=== PATIENT | male | born 1955 | race Caucasian/White ===

== ENCOUNTER 2016-07-16 09:36 | Inpatient (IN) ==
[2016-07-16] MEDS ORDERED: SODIUM CHLORIDE 0.9% 1,000 ML IV STA ×2 (09:40→11:12)
[2016-07-16] MEDS ORDERED: PIPERACILLIN/TAZOBACTAM 3,375 MG in SODIUM CHLORIDE 0.9% 100 ML IV STA (09:40)
[2016-07-16] MEDS ORDERED: methylPREDNISolone SOD SUC 125 MG/2 ML VIAL IV STA (09:40)
[2016-07-16] MEDS ORDERED: methylPREDNISolone SOD SUC 125 MG/2 ML VIAL ONE (09:53)
[2016-07-16] MEDS ORDERED: ALBUTEROL 2.5 MG/3 ML NEB RESP TX SCH (10:00)
[2016-07-16] MEDS ORDERED: ACETAMINOPHEN 325 MG SUPP RECTAL ONE (10:01)
[2016-07-16] MEDS ORDERED: ACETAMINOPHEN 325 MG SUPP RECTAL STA (10:05)
[2016-07-16 10:07] LABS: Allen Test Positive
[2016-07-16 10:10] LABS: ABG Base Excess 4.1 MMOL/L (-2.5-2.5); ABG HCO3 29.2 MMOL/L (20-26); ABG Oxygen Saturation 98.4 % (95-100); ABG PCO2 46.4 MM HG (35-48); ABG PH 7.417 (7.35-7.45); ABG PO2 134.8 MM HG (80-95); ABG TCO2 30.6 MMOL/L (23-27)
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
[2016-07-16] MEDS ORDERED: PIPERACILLIN/TAZOBACTAM 3,375 MG VIAL IV ONE (10:28)
--- NOTE | 2016-07-16 10:51 | EKG Report ---
Stationary ECG Study [facility] ER Test Date: 07/16/2016 10:13:25 AM Pat Name: CLAUDIA HINOJOSA Department: Room: Gender: M Hoistman: SUERO : 1955 Requested by: Jay Luna Order Number: [id number] Reading MD: BRAYDEN KAUR Intervals [place] Rate: 136 P: 64 WI: 151 QRS: 23 QRSD: 72 T: 89 QT: 283 QTc: 363 Interpretive Statements SINUS TACHYCARDIA NONSPECIFIC T-WAVE ABNORMALITY ABNORMAL RHYTHM ECG Electronically Signed On 07-18-16 09:38:34 MANAGER UROLOGY by BRAYDEN KAUR [email or web address]
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
[2016-07-16 11:40] LABS: Basophils % 0.1 % (0.0-0.8); Eosinophils % 0.5 % (0.00-10.9); Hematocrit 30.7 VOL% (42.0-52.0); Hemoglobin 9.8 GM/DL (14.0-18.0); Immature Granulocytes % 0.5 %; Immature Granulocytes Absolute 0.04 #; Lymphocytes # 1.8 10*3/uL (1.4-4.0); Mean Corpuscular HGB Conc 31.9 GM/DL (32-36); Mean Corpuscular Hemoglobin 25 PG (27-34); Mean Corpuscular Volume 78.9 FL (87-102); Monocytes # 1.1 10*3/uL (0.11-0.8); Monocytes % 12.8 % (1.7-12.7); Neutrophils # 5.7 10*3/uL (1.4-7.4); Neutrophils % 65.1 % (38.7-73.9); Platelet Count 239 10*3/uL (130-400); Red Blood Count 3.89 10*6/uL (3.8-5.5); Red Cell Distribution Width 14.6 % (9.3-17.3); White Blood Count 8.7 10*3/uL (4.5-13.71)
[2016-07-16] MEDS ORDERED: ONDANSETRON 4 MG/2 ML VIAL IV PRN (11:41)
[2016-07-16] MEDS ORDERED: MAGNESIUM HYDROXIDE SUSP 30 ML UDCUP PEG PRN (11:43)
[2016-07-16] MEDS ORDERED: POLYETHYLENE GLYCOL POWDER 17 GM PACK PEG PRN (11:43)
[2016-07-16] MEDS ORDERED: traMADol 50 MG TABLET PEG PRN (11:43)
[2016-07-16] MEDS ORDERED: GLUCAGON 1 MG VIAL IM PRN (11:50)
[2016-07-16 11:53] LABS: Albumin 2.7 G/DL (3.4-5.0); Bilirubin,Total 0.5 MG/DL (0.2-1.0); Calcium 8.9 MG/DL (8.5-10.1); Total Protein 7.2 G/DL (6.4-8.3)
[2016-07-16 11:54] LABS: Osmolality,Calculated 302.6 MOS/KG (273-304); Potassium 4.5 MMOL/L (3.5-5.1); Troponin I Only 0.017 NG/ML (0.00-0.045)
[2016-07-16 12:00] LABS: Band Neutrophils 10 % (0-10); Hypochromasia 1+; Lymphocytes 14 % (20-55); Platelet Estimate Adequate; Segmented Neutrophils 64 % (50-85); Total Cells Counted 100
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
[2016-07-16] MEDS: PIPERACILLIN/TAZOBACTAM 3,375 MG in SODIUM CHLORIDE 0.9% 100 ML IV SCH ×2 (13:12→20:16)
[2016-07-16] MEDS: ENOXAPARIN 40 MG/0.4 ML SYRINGE SUBCUT SCH (13:12)
[2016-07-16] MEDS: DESITIN 4OZ/NYSTATIN 15 GRAM MIXTURE PASTE TOP SCH ×2 (14:22→20:29)
[2016-07-16] MEDS: ALBUTEROL/IPRATROPIUM 3 ML NEB RESP TX SCH ×3 (14:52→23:46)
--- NOTE | 2016-07-16 15:02 | Event Note ---
GI consult for Dr Chilel for leaking/malfunctioning PEG as reported by EMS on admission. Nurse present at bedside and PEG tube has minimal residual and flushes well without any leakage at the PEG site or at the distal tip. Will hold off on GI consult at present time unless a reported problem develops with feedings/med administration. Nicolasa Rose RN, at bedside and discussed case. She states she will call us back if any evidence of a leak/dysfunction occurs.
[2016-07-16] MEDS: INSULIN NPH 100 UNIT/ML SUBCUT SCH (16:28)
[2016-07-16] MEDS: SODIUM CHLORIDE 0.9% 1,000 ML IV SCH (16:28)
[2016-07-16] MEDS: INSULIN REGULAR 100 UNIT/ML SUBCUT SCH ×2 (16:29→20:16)
[2016-07-16] MEDS: DOCUSATE SODIUM 100 MG/10 ML UDCUP PEG SCH (20:14)
[2016-07-16] MEDS: RANITIDINE 150 MG/10 ML 30 ML BOTTLE PEG SCH (20:14)
[2016-07-16] MEDS: BISOPROLOL 5 MG TABLET PEG SCH (20:15)
[2016-07-17] MEDS: SODIUM CHLORIDE 0.9% 1,000 ML IV SCH (01:57)
[2016-07-17] MEDS: ALBUTEROL/IPRATROPIUM 3 ML NEB RESP TX SCH ×6 (03:48→23:48)
[2016-07-17] MEDS: PIPERACILLIN/TAZOBACTAM 3,375 MG in SODIUM CHLORIDE 0.9% 100 ML IV SCH ×3 (04:03→21:15)
[2016-07-17 06:08] LABS: Basophils % 0.1 % (0.0-0.8); Hematocrit 28.2 VOL% (42.0-52.0); Immature Granulocytes % 0.7 %; Immature Granulocytes Absolute 0.08 #; Lymphocytes # 1.1 10*3/uL (1.4-4.0); Lymphocytes % 8.9 % (21.2-54.2); Mean Corpuscular HGB Conc 31.9 GM/DL (32-36); Mean Corpuscular Hemoglobin 26 PG (27-34); Mean Corpuscular Volume 80.6 FL (87-102); Mean Platelet Volume 11.9 FL (9.6-12.0); Monocytes # 1.4 10*3/uL (0.11-0.8); Monocytes % 11.7 % (1.7-12.7); Neutrophils # 9.6 10*3/uL (1.4-7.4); Neutrophils % 78.6 % (38.7-73.9); Platelet Count 254 10*3/uL (130-400); Red Cell Distribution Width 14.7 % (9.3-17.3); White Blood Count 12.2 10*3/uL (4.5-13.71)
[2016-07-17 06:33] LABS: Hypochromasia 1+; Platelet Estimate Adequate
[2016-07-17 06:38] LABS: Calcium 8.8 MG/DL (8.5-10.1); Osmolality,Calculated 319.6 MOS/KG (273-304); Potassium 4.8 MMOL/L (3.5-5.1)
[2016-07-17 06:43] LABS: Phosphorous 2.6 MG/DL (2.5-4.9); Prealbumin 6.1 MG/DL (20-40)
--- NOTE | 2016-07-17 07:26 | Hospitalist Progress Note ---
Assessment and Plan (1) Neurologic abnormality Status: Chronic Assessment and plan: He appears to have had initial ischemic brain injury with subsequent ventricular hemorrhage. He has profound neurologic defect with speech, swallowing, and motor impairments requiring total care Current Visit: Yes (2) Aspiration into airway Status: Acute Assessment and plan: Neurogenic with multiple recurrent episodes, appears to have acute chemical bronchitis/alveolitis with this event with suggestion of progressive lung scarring Current Visit: Yes Qualifiers: Encounter type: subsequent encounter Qualified Code(s): T17.908D - Unspecified foreign body in respiratory tract, part unspecified causing other injury, subsequent encounter (3) Diabetes mellitus Status: Chronic Current Visit: No Qualifiers: Diabetes mellitus type: type 2 Diabetes mellitus complication status: with skin complications Diabetes mellitus intermediate frame tender insulin use: with mcc use Hospitalist: Subjective Interval history: 61 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 He has had chronic episodes of aspiration with gradually deteriorating chest radiography. He was reported at custodial to have some problems with his PEG tube and fall in SaO2. Evaluation of PEG appears to show adequate function and KUB is unremarkable. Clinical appearance most consistent with recurrent aspiration of variable volume with aspiration syndrome. Maximum temperature over night of 100.3 with supplemented SaO2 of 100%. He is stable this AM neurologically. Exam - Constitutional Vitals: Period Temp Pulse Resp BP Sys/Birch Pulse Ox Last 24 Hr 98.6 F-99.8 F 109-134 16-34 106-140/62-79 91-100 General appearance: under weight - Respiratory Respiratory exam: Present: clear to auscultation bilaterally. Absent: rales, rhonchi, wheezes - Cardiovascular Cardiovascular exam: Present: regular rate and rhythm - GI/Abdominal GI/Abdominal exam: Present: normal bowel sounds. Absent: distended, tenderness - Extremities Exam Extremities exam: Absent: edema - Neurological Exam Neurological exam: Present: alert Results - Labs CBC & BMP: 07/17/16 05:51 07/17/16 05:51
[2016-07-17] MEDS ORDERED: PROTEIN HYDROLYS PEG SCH (09:00)
[2016-07-17] MEDS ORDERED: AMINO ACIDS PEG SCH (09:00)
[2016-07-17] MEDS: ATORVASTATIN 20 MG TABLET PEG SCH (09:23)
[2016-07-17] MEDS: BISOPROLOL 5 MG TABLET PEG SCH ×2 (09:23→21:15)
[2016-07-17] MEDS: INSULIN NPH 100 UNIT/ML SUBCUT SCH ×2 (09:23→17:06)
[2016-07-17] MEDS: INSULIN REGULAR 100 UNIT/ML SUBCUT SCH ×4 (09:23→21:14)
[2016-07-17] MEDS: RANITIDINE 150 MG/10 ML 30 ML BOTTLE PEG SCH ×2 (09:24→21:15)
[2016-07-17] MEDS: SERTRALINE 25 MG TABLET PEG SCH (09:24)
[2016-07-17] MEDS: DESITIN 4OZ/NYSTATIN 15 GRAM MIXTURE PASTE TOP SCH ×2 (09:24→21:17)
[2016-07-17] MEDS: DOCUSATE SODIUM 100 MG/10 ML UDCUP PEG SCH ×2 (09:24→21:15)
[2016-07-17] MEDS: SODIUM CHLORIDE 0.45% 1,000 ML IV SCH (09:25)
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
[2016-07-17] MEDS: ENOXAPARIN 40 MG/0.4 ML SYRINGE SUBCUT SCH (11:38)
[2016-07-18] MEDS: ALBUTEROL/IPRATROPIUM 3 ML NEB RESP TX SCH ×5 (03:28→20:33)
[2016-07-18] MEDS: PIPERACILLIN/TAZOBACTAM 3,375 MG in SODIUM CHLORIDE 0.9% 100 ML IV SCH ×3 (03:28→21:30)
[2016-07-18] MEDS: SODIUM CHLORIDE 0.45% 1,000 ML IV SCH ×5 (03:47→21:28)
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
[2016-07-18] MEDS: SERTRALINE 25 MG TABLET PEG SCH (09:23)
[2016-07-18] MEDS: BISOPROLOL 5 MG TABLET PEG SCH ×2 (09:23→21:30)
[2016-07-18] MEDS: DOCUSATE SODIUM 100 MG/10 ML UDCUP PEG SCH ×2 (09:23→21:29)
[2016-07-18] MEDS: ATORVASTATIN 20 MG TABLET PEG SCH (09:23)
[2016-07-18] MEDS: RANITIDINE 150 MG/10 ML 30 ML BOTTLE PEG SCH ×2 (09:24→21:30)
[2016-07-18] MEDS: INSULIN REGULAR 100 UNIT/ML SUBCUT SCH ×4 (09:25→21:30)
[2016-07-18] MEDS: DESITIN 4OZ/NYSTATIN 15 GRAM MIXTURE PASTE TOP SCH ×2 (09:25→21:30)
[2016-07-18] MEDS: INSULIN NPH 100 UNIT/ML SUBCUT SCH ×2 (09:26→18:34)
[2016-07-18] MEDS: ENOXAPARIN 40 MG/0.4 ML SYRINGE SUBCUT SCH (12:31)
--- NOTE | 2016-07-18 12:49 | General Surgery Progress Note ---
Assessment and Plan (1) Peripheral vascular disease of lower extremity with ulceration Status: Acute Assessment and plan: 07/18/16 Stable left lower extremity diabetic foot wounds with peripheral vascular disease. I see no progression, nothing to suggest infection at this time. We'll continue to watch this while he's here, but he could easily transition to his current wound protocol whenever he's ready for discharge back to his SNF situation. WE'll add some topical antibiotic ointment and a band aid to the left 2nd toe until the avulsion wound heals. 07/17/16 Lower extremity peripheral vascular disease with diabetic foot ulcer and open tendon on the left-I see no gross clinical signs of infection or any progressive ischemic change. We'll just begin local care and offload these areas , watch for signs of progression or infection, and continue tube feedings. The adjacent skin should autolytically debride with Hydrogel/adaptic, avoiding an OR visit in this high risk patient, and the open tendon will need to be kept moist in order to salvage it, but he's not very mobile at this point so I don't feel we should be very aggressive in trying to close the area as long as he is having no problems with infection or progressive ischemia. Current Visit: Yes (2) Status post amputation of toe of left foot Status: Acute Current Visit: No (3) Diabetic foot ulcer associated with type 2 diabetes mellitus Status: Chronic Current Visit: No Qualifiers: Laterality: bilateral Qualified Code(s): E11.621 - Type 2 diabetes mellitus with foot ulcer Subjective Patient reports: Present: other (Affect and responsiveness unchanged; denies pain.) Exam - Constitutional Vitals: Period Temp Pulse Resp BP Sys/Birch Pulse Ox Last 24 Hr 98.5 F-100.5 F 83-110 16-96 142-174/68-98 93-99 - Respiratory Respiratory exam: Present: other (Breathing much more comfortably on nasal prong 02. No wheezes or rales.) - Extremities Exam Extremities exam: Present: other (Left dorsal foot wound is cleaner touch up worker, with moist eschars over the medial foot. There is no purulence, no erythema or induration. I see no progressive ischemic changes. The lateral foot wound is softer and very small; it appears to be a superficial healing abrasion. Unfortunately he has sustained what looks to be a traumatic avulsion of the left 2nd toenail; it is not bleeding but is completely avulsed, hanging at the nail bed by a thin tissue strand. i elected to cut this using a sterile suture removal kit. There was no bleeding or drainage seen. ) Results - Labs CBC & BMP: 07/17/16 05:51 07/17/16 05:51 Specialty Discharge - Follow Up or Referrals Follow up with: Amado Barrett MD [Physician] - (6 weeks)
--- NOTE | 2016-07-18 13:33 | Physician Query Form ---
CLICK EDIT DOCUMENT TO SELECT QUERY ANSWER --> OK --> SIGN Rosey Martines RN Clinical General Farm Manager W) [phone] (f) [phone] [email or web address] PROVIDERS: Make your selection(s) from the choices in EACH section by typing an "x" and enter comments in the comment section. Please use your independent medical judgment in providing your response. This request does not imply that any particular answer is desired or expected. CLINICAL INDICATORS: (Providers should not edit this section) Based on documentation of "functional quadriplegia" on correction records, nurse notes state "muscle weakness and total care". Please clarify if you agree with the documentation of functional quadriplegia. Which, if any, of the following is an etiology of the above abnormalities and treatment rendered: ( ) Functional quadriplegia (complete immobility due to severe physical disability or frailty due to non-neurologic cause) ( x) Quadriplegia due to a neurologic cause, please specify: ( ) Paraplegia due to a neurologic cause, please specify: ( ) Hemiplegia/hemiparesis due to a neurologic cause, please specify: ( ) Complete Immobility (due to frailty or severe physical disability) ( ) Persistent vegetative state ( ) Critical illness myopathy (difficulty weaning patients from mechanical ventilation or prolonged recovery after illness) ( ) General weakness ( ) Other cause, please specify: ( ) Clinically unable to determine COMMENTS: Use of terms such as suspected, likely, or probable (associated with a specific diagnosis that is being evaluated, monitored, or treated as if it exists) are acceptable and can be restated in the discharge summary if not ruled out. repetitive stroke syndrome MTDD
[2016-07-19] MEDS: ALBUTEROL/IPRATROPIUM 3 ML NEB RESP TX SCH ×7 (00:22→23:49)
[2016-07-19 01:12] LABS: Allen Test Positive
[2016-07-19 01:13] LABS: ABG Base Excess 10.2 MMOL/L (-2.5-2.5); ABG HCO3 35.3 MMOL/L (20-26); ABG Oxygen Saturation 93.3 % (95-100); ABG PCO2 50.4 MM HG (35-48); ABG PH 7.463 (7.35-7.45); ABG TCO2 36.8 MMOL/L (23-27)
[2016-07-19] MEDS: SODIUM CHLORIDE 0.45% 1,000 ML IV SCH ×3 (01:23→22:01)
[2016-07-19] MEDS: PIPERACILLIN/TAZOBACTAM 3,375 MG in SODIUM CHLORIDE 0.9% 100 ML IV SCH ×3 (04:19→20:27)
[2016-07-19 04:23] LABS: Osmolality,Calculated 313.3 MOS/KG (273-304); Potassium 4.3 MMOL/L (3.5-5.1)
[2016-07-19 09:00] LABS: ABG Base Excess 8.2 MMOL/L (-2.5-2.5); ABG HCO3 31.8 MMOL/L (20-26); ABG Oxygen Saturation 90.7 % (95-100); ABG PO2 57.9 MM HG (80-95); ABG TCO2 30.4 MMOL/L (23-27)
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
[2016-07-19] MEDS: INSULIN NPH 100 UNIT/ML SUBCUT SCH ×2 (09:33→16:49)
[2016-07-19] MEDS: INSULIN REGULAR 100 UNIT/ML SUBCUT SCH ×4 (09:33→21:22)
[2016-07-19] MEDS: ATORVASTATIN 20 MG TABLET PEG SCH (10:06)
[2016-07-19] MEDS: RANITIDINE 150 MG/10 ML 30 ML BOTTLE PEG SCH ×2 (10:06→21:50)
[2016-07-19] MEDS: DOCUSATE SODIUM 100 MG/10 ML UDCUP PEG SCH ×2 (10:06→21:22)
[2016-07-19] MEDS: BISOPROLOL 5 MG TABLET PEG SCH ×2 (10:07→21:22)
[2016-07-19] MEDS: SERTRALINE 25 MG TABLET PEG SCH (10:07)
[2016-07-19] MEDS: methylPREDNISolone SOD SUC 40 MG/1 ML VIAL IV SCH ×2 (10:07→17:28)
[2016-07-19] MEDS: CLINDAMYCIN INJ 600 MG in PREMIX 1 EACH IV SCH ×2 (10:08→17:28)
[2016-07-19 11:36] LABS: Apearance,Urine CLEAR (Clear); Bilirubin,Urine Negative (Negative); Blood, Urine Small mg/dL (Negative); Glucose,Urine (UA) 50 mg/dL (Negative); Ketones,Urine Negative (Negative); Nitrite,Urine Negative (Negative); Protein,Urine 100 MG/DL; RBC,Urine 13 /HPF (0-4); Urine Color Yellow (Yellow); Urine Specific Gravity 1.014 (1.001-1.035); Urine Urobilinogen < 2.0 EU/DL (0.2-1.0); WBC,Urine 1 /HPF (0-6)
[2016-07-19] MEDS: DESITIN 4OZ/NYSTATIN 15 GRAM MIXTURE PASTE TOP SCH ×2 (12:31→21:50)
[2016-07-19] MEDS: ENOXAPARIN 40 MG/0.4 ML SYRINGE SUBCUT SCH (12:31)
--- NOTE | 2016-07-19 14:34 | Hospitalist Progress Note ---
Assessment and Plan (1) Failure to thrive Status: Chronic Assessment and plan: PEG tube in place. Patient has been a high aspiration risk. At this time hold PEG tube feeding. Current Visit: No (2) Diabetes mellitus Status: Chronic Current Visit: No Qualifiers: Diabetes mellitus type: type 2 Diabetes mellitus complication status: with skin complications Diabetes mellitus intermediate school teacher insulin use: with intermediate school teacher use (3) History of pneumonia Status: Acute Assessment and plan: Continue antibiotics with Zosyn. Current Visit: No (4) Dehydration Status: Resolved Assessment and plan: Elevated serum sodium level. Continue IV fluids. Current Visit: No (5) Hypernatremia Status: Acute Current Visit: No (6) Pneumonia Status: Resolved Current Visit: No Qualifiers: Laterality: bilateral (7) History of stroke Status: Chronic Current Visit: No Hospitalist: Subjective Interval history: This patient became more lethargic and affect earlier this morning. He is been transferred to the ICU setting and is now on BiPAP ventilation. Vitals are slightly better. Chest x-ray shows no change from previous x-rays although infiltrate on the left are noted. There is concern of patient's high aspiration risk given his history of CVA and PEG tube feedings with these infiltrates noted. Time we are awaiting further input from family as relates to Mr. Baig's CODE STATUS and further care. Exam - Constitutional Vitals: Period Temp Pulse Resp BP Sys/Birch Pulse Ox Last 24 Hr 97.8 F-100.4 F 101-119 16-36 91-162/64-97 90-98 General appearance: mild distress, under weight - Head Head exam: Present: normal inspection - Neck Neck exam: Present: normal inspection - Respiratory Respiratory exam: Present: clear to auscultation bilaterally - Cardiovascular Cardiovascular exam: Present: regular rate and rhythm - GI/Abdominal GI/Abdominal exam: Present: normal bowel sounds, other (PEG tube in place) - Back Exam Back exam: Present: other (no abnormalities on back exam.) Results - Labs CBC & BMP: 07/17/16 05:51 07/19/16 03:11 Specialty Discharge - Follow Up or Referrals Follow up with: Amado Barrett MD [Physician] - (6 weeks)
[2016-07-20] MEDS: CLINDAMYCIN INJ 600 MG in PREMIX 1 EACH IV SCH ×3 (02:22→17:32)
[2016-07-20] MEDS: methylPREDNISolone SOD SUC 40 MG/1 ML VIAL IV SCH ×3 (02:23→17:32)
[2016-07-20] MEDS: PIPERACILLIN/TAZOBACTAM 3,375 MG in SODIUM CHLORIDE 0.9% 100 ML IV SCH ×3 (03:28→20:29)
[2016-07-20] MEDS: ALBUTEROL/IPRATROPIUM 3 ML NEB RESP TX SCH ×6 (03:30→23:42)
[2016-07-20 03:55] LABS: ABG Base Excess 7.9 MMOL/L (-2.5-2.5); ABG HCO3 31.7 MMOL/L (20-26); ABG Oxygen Saturation 99.4 % (95-100); ABG PCO2 55.1 MM HG (35-48); ABG PH 7.399 (7.35-7.45); ABG TCO2 31.7 MMOL/L (23-27); Allen Test Positive; Pt O2 Delivery Device BIPAP
[2016-07-20 05:18] LABS: Basophils % 0.1 % (0.0-0.8); Eosinophils % 0.1 % (0.00-10.9); Hematocrit 28.9 VOL% (42.0-52.0); Hemoglobin 8.8 GM/DL (14.0-18.0); Immature Granulocytes % 7.6 %; Immature Granulocytes Absolute 1.03 #; Lymphocytes % 14.9 % (21.2-54.2); Mean Corpuscular HGB Conc 30.4 GM/DL (32-36); Mean Corpuscular Hemoglobin 25 PG (27-34); Mean Corpuscular Volume 81.6 FL (87-102); Mean Platelet Volume 11.3 FL (9.6-12.0); Monocytes # 1.4 10*3/uL (0.11-0.8); Monocytes % 10.6 % (1.7-12.7); NRBC # 0.05 10*3/uL; Neutrophils % 66.7 % (38.7-73.9); Platelet Count 335 10*3/uL (130-400); Red Blood Count 3.54 10*6/uL (3.8-5.5); Red Cell Distribution Width 15.3 % (9.3-17.3); White Blood Count 13.6 10*3/uL (4.5-13.71)
[2016-07-20 05:59] LABS: Potassium 4.6 MMOL/L (3.5-5.1)
[2016-07-20 06:02] LABS: Band Neutrophils 3 % (0-10); Lymphocytes 12 % (20-55); Metamyelocytes 4 %; Myelocytes 1 %; Segmented Neutrophils 72 % (50-85); Total Cells Counted 100
[2016-07-20 06:03] LABS: Hypochromasia 1+; Microcytosis 1+; Platelet Estimate Normal
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
--- NOTE | 2016-07-20 07:21 | XRay Report ---
XR chest 1V portable Indication: Shortness of breath. Chest one view: Since yesterday, heart size remains normal with continued mild thoracic aortic tortuosity. Coarsened interstitial markings of the lungs with more focal area of coarsening in the right middle lobe, elevated right hemidiaphragm and shrapnel right chest wall are stable as well. No new infiltrates are seen. Minimal improved aeration of the left lung base noted. Impression: Minimally improved aeration left lung base. Otherwise no change. PROCEDURE INTERPRETED AT [facility] DEPARTMENT OF RADIOLOGY Final Report Signed by: Diallo Amador M.D.
[2016-07-20] MEDS: INSULIN NPH 100 UNIT/ML SUBCUT SCH ×2 (07:33→16:23)
[2016-07-20] MEDS: INSULIN REGULAR 100 UNIT/ML SUBCUT SCH ×4 (07:41→20:30)
[2016-07-20] MEDS: SODIUM CHLORIDE 0.45% 1,000 ML IV SCH ×2 (08:01→16:26)
[2016-07-20] MEDS: BISOPROLOL 5 MG TABLET PEG SCH ×2 (08:59→20:29)
[2016-07-20] MEDS: SERTRALINE 25 MG TABLET PEG SCH (08:59)
[2016-07-20] MEDS: DOCUSATE SODIUM 100 MG/10 ML UDCUP PEG SCH ×2 (08:59→20:30)
[2016-07-20] MEDS: ATORVASTATIN 20 MG TABLET PEG SCH (08:59)
[2016-07-20] MEDS: RANITIDINE 150 MG/10 ML 30 ML BOTTLE PEG SCH ×2 (09:00→20:30)
[2016-07-20] MEDS: DESITIN 4OZ/NYSTATIN 15 GRAM MIXTURE PASTE TOP SCH ×2 (09:08→20:39)
--- NOTE | 2016-07-20 11:10 | Hospitalist Progress Note ---
Assessment and Plan (1) Failure to thrive Status: Chronic Assessment and plan: PEG tube in place. Patient has been a high aspiration risk. At this time, trickle start of the feeds Current Visit: No (2) Diabetes mellitus Status: Chronic Current Visit: No Qualifiers: Diabetes mellitus type: type 2 Diabetes mellitus complication status: with skin complications Diabetes mellitus residential insulin use: with residential use (3) History of pneumonia Status: Acute Assessment and plan: Continue antibiotics with Zosyn. Current Visit: No (4) Dehydration Status: Resolved Assessment and plan: Elevated serum sodium level. Continue IV fluids. Current Visit: No (5) Hypernatremia Status: Acute Current Visit: No (6) Pneumonia Status: Resolved Current Visit: No Qualifiers: Laterality: bilateral (7) History of stroke Status: Chronic Current Visit: No Hospitalist: Subjective Interval history: Patient is more awake. He is now on facemask oxygen. Hemodynamics have been stable. There is been a slight bit of drainage from around the Fonseca catheter no wounds appreciated. Exam - Constitutional Vitals: Period Temp Pulse Resp BP Sys/Birch Pulse Ox Last 24 Hr 98.8 F-99.6 F 88-113 18-32 99-131/64-85 93-100 General appearance: under weight - Head Head exam: Present: normal inspection - Respiratory Respiratory exam: Present: clear to auscultation bilaterally - Cardiovascular Cardiovascular exam: Present: regular rate and rhythm - GI/Abdominal GI/Abdominal exam: Present: normal bowel sounds Results - Labs CBC & BMP: 07/20/16 04:33 07/20/16 04:33 Specialty Discharge - Follow Up or Referrals Follow up with: Amado Barrett MD [Physician] - (6 weeks)
[2016-07-20] MEDS: ENOXAPARIN 40 MG/0.4 ML SYRINGE SUBCUT SCH (12:15)
[2016-07-20] MEDS ORDERED: ACETAMINOPHEN 325 MG SUPP RECTAL PRN (17:21)
[2016-07-21] MEDS: CLINDAMYCIN INJ 600 MG in PREMIX 1 EACH IV SCH ×3 (01:06→17:15)
[2016-07-21] MEDS: methylPREDNISolone SOD SUC 40 MG/1 ML VIAL IV SCH ×3 (01:07→17:16)
[2016-07-21] MEDS: ALBUTEROL/IPRATROPIUM 3 ML NEB RESP TX SCH ×6 (03:04→23:31)
[2016-07-21 03:07] LABS: Allen Test Positive; Pt O2 Delivery Device Venturi Mask
[2016-07-21 03:08] LABS: ABG Base Excess 9.5 MMOL/L (-2.5-2.5); ABG HCO3 35.4 MMOL/L (20-26); ABG Oxygen Saturation 96.3 % (95-100); ABG PCO2 55.5 MM HG (35-48); ABG PH 7.423 (7.35-7.45); ABG PO2 89.5 MM HG (80-95); ABG TCO2 37.1 MMOL/L (23-27)
[2016-07-21 05:33] LABS: Calcium 9.5 MG/DL (8.5-10.1); Osmolality,Calculated 327.7 MOS/KG (273-304); Potassium 4.7 MMOL/L (3.5-5.1)
[2016-07-21] MEDS: SODIUM CHLORIDE 0.45% 1,000 ML IV SCH (05:51)
[2016-07-21] MEDS: PIPERACILLIN/TAZOBACTAM 3,375 MG in SODIUM CHLORIDE 0.9% 100 ML IV SCH ×3 (06:00→20:55)
[2016-07-21 06:52] LABS: Basophils % 0.1 % (0.0-0.8); Hematocrit 32.9 VOL% (42.0-52.0); Hemoglobin 9.8 GM/DL (14.0-18.0); Immature Granulocytes % 6.7 %; Immature Granulocytes Absolute 1.13 #; Lymphocytes # 1.6 10*3/uL (1.4-4.0); Lymphocytes % 9.7 % (21.2-54.2); Mean Corpuscular HGB Conc 29.8 GM/DL (32-36); Mean Corpuscular Hemoglobin 25 PG (27-34); Mean Corpuscular Volume 85.2 FL (87-102); Monocytes # 1.6 10*3/uL (0.11-0.8); Monocytes % 9.5 % (1.7-12.7); NRBC # 0.03 10*3/uL; Neutrophils # 12.4 10*3/uL (1.4-7.4); Platelet Count 370 10*3/uL (130-400); Red Blood Count 3.86 10*6/uL (3.8-5.5); Red Cell Distribution Width 15.3 % (9.3-17.3); White Blood Count 16.8 10*3/uL (4.5-13.71)
[2016-07-21 07:12] LABS: Band Neutrophils 5 % (0-10); Hypochromasia 1+; Lymphocytes 9 % (20-55); Metamyelocytes 1 %; Nucleated Red Blood Cells 1 (0-5); Segmented Neutrophils 79 % (50-85); Total Cells Counted 100
[2016-07-21 07:13] LABS: Microcytosis 1+; Platelet Estimate Normal
--- NOTE | 2016-07-21 07:19 | Pulmonology Progress Note ---
Pulmonary - PN: Subj Interval history: This 61-year-old black male has had a previous stroke. Apparently having problems with recurrent aspiration pneumonia. His oxygen levels have improved on the BiPAP facemask. We'll try him back on Ventimask during the day. 07/21/2016 patient is a little more responsive. Looking around. ABGs look good. PO2 is 89 on the Ventimask we'll reduce him to nasal biprong. Exam (Progress Note) - Constitutional Vitals: Period Temp Pulse Resp BP Sys/Birch Pulse Ox Last 24 Hr 96.9 F-102.6 F 76-99 17-26 122-148/66-85 93-100 Exam: Patient's noncommunicative. He is looking around and appears to be more alert. Vital signs normal. pupils react to light. Face symmetrical. Neck supple no bruits. Chest reveals some rhonchi primarily at the right base. Heart normal rate rhythm no murmurs. Abdomen soft no masses. Bowel sounds present. Extremities no clubbing cyanosis edema. Results - Labs CBC & BMP: 07/21/16 06:43 07/21/16 04:13 Lab Results: I have reviewed the past 24 hour labs - Diagnostic Findings Procedure: Chest x-ray: image reviewed by me (minimal right basilar infiltrate seems improved.) Assessment and Plan (1) Diabetes mellitus Status: Chronic Assessment and plan: Glucoses appear fairly well controlled. I'm adding steroids we need to watch these closely. 07/20/2016 glucoses in the low 200s. This is fair control. 07/21/2016 glucoses fairly well controlled. Current Visit: No Qualifiers: Diabetes mellitus type: type 2 Diabetes mellitus complication status: with skin complications Diabetes mellitus complication detail: with foot ulcer Diabetes mellitus exterminator insulin use: with fdc use Qualified Code(s) : E11.621 - Type 2 diabetes mellitus with foot ulcer (2) History of stroke Status: Chronic Assessment and plan: Previous intraventricular bleed with aphasia, and bedridden state. Would be concerned about control of airway. We'll keep head elevated. 07/20/2016 patient unable to control his airway. Patient fed per PEG tube. Keep head elevated. 07/21/2016 he is a little bit more alert now. Does have hypernatremia. We'll change IV fluids. Current Visit: No (3) Aspiration pneumonia Status: Acute Assessment and plan: Presently on Zosyn. I will add Cleocin and Solu-Medrol. 07/20/2016 continuing broad-spectrum antibiotics and steroids. Looks a little better today. 07/21/2016 continuing empiric antibiotics and steroids. Current Visit: Yes (4) Neurologic abnormality Status: Chronic Assessment and plan: Has devastating neurologic effects of previous bleed. My concern at present is whether he can control his airway. He is being fed through a PEG tube. I think it would keep his head elevated would be all right with the BiPAP. If he has any vomiting we will have to intubate. If oxygen saturation drops further we will have to intubate. Await word from family on what their wishes are. 07/20/2016 patient not interactive. Probably cannot defend his airway. 07/21/2016 patient a little bit more alert. Current Visit: Yes (5) Hypernatremia Status: Resolved Assessment and plan: Sodium is 159. He is getting normal saline. I will change him to one quarter normal saline due to hypernatremia and diabetes. Current Visit: No Specialty Discharge - Follow Up or Referrals Follow up with: Amado Barrett MD [Physician] - (6 weeks)
--- NOTE | 2016-07-21 07:56 | XRay Report ---
XR chest 1V portable Indication: Shortness of breath. Chest one view: Comparison yesterday shows shrapnel over the right chest wall is unchanged. Interstitial prominence of the lungs, patchy density right lung base, pulmonary hypoinflation and normal heart size are stable as well. No new infiltrates are seen. Impression: No change. PROCEDURE INTERPRETED AT [facility], [place] DEPARTMENT OF RADIOLOGY Final Report Signed by: Diallo Amador M.D.
[2016-07-21] MEDS: ATORVASTATIN 20 MG TABLET PEG SCH (08:52)
[2016-07-21] MEDS: SERTRALINE 25 MG TABLET PEG SCH (08:52)
[2016-07-21] MEDS: BISOPROLOL 5 MG TABLET PEG SCH ×2 (08:52→20:59)
[2016-07-21] MEDS: DOCUSATE SODIUM 100 MG/10 ML UDCUP PEG SCH ×2 (08:52→20:59)
[2016-07-21] MEDS: INSULIN REGULAR 100 UNIT/ML SUBCUT SCH ×4 (08:53→21:16)
[2016-07-21] MEDS: INSULIN NPH 100 UNIT/ML SUBCUT SCH ×2 (08:53→17:08)
[2016-07-21] MEDS: RANITIDINE 150 MG/10 ML 30 ML BOTTLE PEG SCH ×2 (08:54→20:59)
[2016-07-21] MEDS: DESITIN 4OZ/NYSTATIN 15 GRAM MIXTURE PASTE TOP SCH ×2 (08:54→21:00)
--- NOTE | 2016-07-21 09:04 | Hospitalist Progress Note ---
Assessment and Plan (1) Failure to thrive Status: Chronic Assessment and plan: PEG tube in place. Patient has been a high aspiration risk. At this time, trickle start of the feeds Feel this patient needs to be in a long-term acute care facility. Current Visit: No (2) Diabetes mellitus Status: Chronic Current Visit: No Qualifiers: Diabetes mellitus type: type 2 Diabetes mellitus complication status: with skin complications Diabetes mellitus half-way insulin use: with half-way use (3) History of pneumonia Status: Acute Assessment and plan: Continue antibiotics with Zosyn. Current Visit: No (4) Dehydration Status: Resolved Assessment and plan: Elevated serum sodium level. Continue IV fluids. Have also started freewater flushes. 100 cc every 4 hours. Current Visit: No (5) Hypernatremia Status: Acute Current Visit: No (6) Pneumonia Status: Resolved Current Visit: No Qualifiers: Laterality: bilateral (7) History of stroke Status: Chronic Current Visit: No Hospitalist: Subjective Interval history: Mr. Baig is sitting up in bed. He is now on nasal cannula. However did have an episode of desaturation earlier this morning. The patient has a high risk of aspiration and is currently being treated for aspiration pneumonia. He is much more open awake and interactive. He is getting increased free water flushes as well as free water through his IV. Continue with trickle feeds. 1. Social work for LTAC 2. No family in contact over the weekend. However, code status needs to be further addressed. 3. CBC, BMP in A M Exam - Constitutional Vitals: Period Temp Pulse Resp BP Sys/Birch Pulse Ox Last 24 Hr 96.9 F-102.6 F 76-99 17-26 122-148/66-85 94-100 General appearance: under weight - Head Head exam: Present: abrasion (noted on cheeks due to facemask, now getting nasal cannula) - Respiratory Respiratory exam: Present: clear to auscultation bilaterally - Cardiovascular Cardiovascular exam: Present: regular rate and rhythm Results - Labs CBC & BMP: 07/21/16 06:43 07/21/16 04:13 Specialty Discharge - Follow Up or Referrals Follow up with: Amado Barrett MD [Physician] - (6 weeks)
[2016-07-21] MEDS: SODIUM CHLORIDE 23.4% CONC INJ 38.5 MEQ in STERILE WATER INJ 1,000 ML IV SCH (11:48)
[2016-07-21] MEDS: ENOXAPARIN 40 MG/0.4 ML SYRINGE SUBCUT SCH (12:13)
[2016-07-21] MEDS: amLODIPine 5 MG TABLET PO SCH (20:59)
[2016-07-22] MEDS: methylPREDNISolone SOD SUC 40 MG/1 ML VIAL IV SCH ×2 (02:23→09:40)
[2016-07-22] MEDS: CLINDAMYCIN INJ 600 MG in PREMIX 1 EACH IV SCH ×3 (02:23→17:29)
[2016-07-22] MEDS: ALBUTEROL/IPRATROPIUM 3 ML NEB RESP TX SCH ×6 (03:10→23:50)
[2016-07-22] MEDS: PIPERACILLIN/TAZOBACTAM 3,375 MG in SODIUM CHLORIDE 0.9% 100 ML IV SCH ×3 (04:21→20:25)
[2016-07-22 06:35] LABS: Basophils % 0.1 % (0.0-0.8); Hematocrit 35.7 VOL% (42.0-52.0); Hemoglobin 10.7 GM/DL (14.0-18.0); Immature Granulocytes % 3.2 %; Immature Granulocytes Absolute 0.52 #; Lymphocytes # 1.4 10*3/uL (1.4-4.0); Lymphocytes % 8.7 % (21.2-54.2); Mean Corpuscular Hemoglobin 25 PG (27-34); Mean Corpuscular Volume 84.4 FL (87-102); Mean Platelet Volume 11.1 FL (9.6-12.0); Monocytes # 1.1 10*3/uL (0.11-0.8); Monocytes % 7.1 % (1.7-12.7); NRBC # 0.02 10*3/uL; Neutrophils % 80.9 % (38.7-73.9); Platelet Count 396 10*3/uL (130-400); Red Blood Count 4.23 10*6/uL (3.8-5.5); Red Cell Distribution Width 15.5 % (9.3-17.3)
--- NOTE | 2016-07-22 07:00 | Pulmonology Progress Note ---
Pulmonary - PN: Subj Interval history: This 61-year-old black male has had a previous stroke. Apparently having problems with recurrent aspiration pneumonia. His oxygen levels have improved on the BiPAP facemask. We'll try him back on Ventimask during the day. 07/21/2016 patient is a little more responsive. Looking around. ABGs look good. PO2 is 89 on the Ventimask we'll reduce him to nasal biprong. 07/22/2016 patient seems more alert and is calm. He is noncommunicative. X- ray yesterday was much better. O2 sats 99% on 2 L. Presently on IV antibiotics and steroids and we will start weaning those. Exam (Progress Note) - Constitutional Vitals: Period Temp Pulse Resp BP Sys/Birch Pulse Ox Last 24 Hr 97 F-99.3 F 32-105 14-85 122-166/71-93 85-100 Exam: Patient's noncommunicative. He is more alert. Vital signs normal. pupils react to light. Face symmetrical. Neck supple no bruits. Chest reveals clear lungs bilaterally. Heart normal rate rhythm no murmurs. Abdomen soft no masses. Bowel sounds present. Extremities no clubbing cyanosis edema. Results - Labs CBC & BMP: 07/22/16 06:27 07/21/16 04:13 Lab Results: I have reviewed the past 24 hour labs Assessment and Plan (1) Diabetes mellitus Status: Chronic Assessment and plan: Glucoses appear fairly well controlled. I'm adding steroids we need to watch these closely. 07/20/2016 glucoses in the low 200s. This is fair control. 07/21/2016 glucoses fairly well controlled. 07/22/2016 blood sugars well controlled. Current Visit: No Qualifiers: Diabetes mellitus type: type 2 Diabetes mellitus complication status: with skin complications Diabetes mellitus complication detail: with foot ulcer Diabetes mellitus exterminator insulin use: with usp use Qualified Code(s) : E11.621 - Type 2 diabetes mellitus with foot ulcer (2) History of stroke Status: Chronic Assessment and plan: Previous intraventricular bleed with aphasia, and bedridden state. Would be concerned about control of airway. We'll keep head elevated. 07/20/2016 patient unable to control his airway. Patient fed per PEG tube. Keep head elevated. 07/21/2016 he is a little bit more alert now. Does have hypernatremia. We'll change IV fluids. 07/22/2016 patient seems to respond to questions although he is nonverbal. Current Visit: No (3) Aspiration pneumonia Status: Acute Assessment and plan: Presently on Zosyn. I will add Cleocin and Solu-Medrol. 07/20/2016 continuing broad-spectrum antibiotics and steroids. Looks a little better today. 07/21/2016 continuing empiric antibiotics and steroids. 07/22/2016 he has responded to antibiotics and steroids. We'll change and give them per feeding tube. Current Visit: Yes (4) Neurologic abnormality Status: Chronic Assessment and plan: Has devastating neurologic effects of previous bleed. My concern at present is whether he can control his airway. He is being fed through a PEG tube. I think it would keep his head elevated would be all right with the BiPAP. If he has any vomiting we will have to intubate. If oxygen saturation drops further we will have to intubate. Await word from family on what their wishes are. 07/20/2016 patient not interactive. Probably cannot defend his airway. 07/21/2016 patient a little bit more alert. 07/22/16 today and has had a severe stroke in the past. He does nod somewhat to questions but does not talk. Current Visit: Yes (5) Hypernatremia Status: Resolved Assessment and plan: Sodium is 159. He is getting normal saline. I will change him to one quarter normal saline due to hypernatremia and diabetes. 07/22/2016 chemistries pending this morning. Current Visit: No Specialty Discharge - Follow Up or Referrals Follow up with: Amado aBrrett MD [Physician] - (6 weeks)
[2016-07-22 07:03] LABS: Hypochromasia 1+; Lymphocytes 6 % (20-55); Polychromasia Slight; Segmented Neutrophils 89 % (50-85); Target Cells Slight; Total Cells Counted 100
[2016-07-22 07:06] LABS: Calcium 9.6 MG/DL (8.5-10.1); Magnesium 2.3 MG/DL (1.8-2.4); Osmolality,Calculated 325.6 MOS/KG (273-304)
[2016-07-22 07:24] LABS: Magnesium 2.3 MG/DL (1.8-2.4); Phosphorous 3.5 MG/DL (2.5-4.9); Prealbumin 13.7 MG/DL (20-40)
--- NOTE | 2016-07-22 08:37 | General Surgery Progress Note ---
Assessment and Plan - Time spent with patient Time spent with patient: Less than 30 minutes (1) Diabetic foot ulcer associated with type 2 diabetes mellitus Status: Chronic Assessment and plan: 07/22/2016. Ulcer is stable at this time no eschar and the sloughing material is beginning to all to lyse at this time. We'll maintain present level of care. Current Visit: No Qualifiers: Laterality: left Qualified Code(s): E11.621 - Type 2 diabetes mellitus with foot ulcer; L97.529 - Non-pressure chronic ulcer of other part of left foot with unspecified severity Subjective Patient reports: Present: no new complaints, afebrile, other (not very responsive.) Exam - Constitutional Vitals: Period Temp Pulse Resp BP Sys/Birch Pulse Ox Last 24 Hr 97 F-98.9 F 32-101 14-85 119-166/71-93 92-100 General appearance: no acute distress - Neck Neck exam: Present: normal inspection - Respiratory Respiratory exam: Present: rales - Cardiovascular Cardiovascular exam: Present: RRR - GI/Abdominal GI/Abdominal exam: Present: hypoactive bowel sounds, soft - Extremities Exam Extremities exam: Present: other (ulcer of the left foot is clean and moist with slough slowly auto lysing at this time) - Neurological Exam Neurological exam: Present: altered - Skin Skin exam: Present: normal color, warm, dry Results - Labs CBC & BMP: 07/22/16 06:27 07/22/16 06:27 Lab Results: I have reviewed the past 24 hour labs Specialty Discharge - Follow Up or Referrals Follow up with: Amado Barrett MD [Physician] - (6 weeks)
[2016-07-22] MEDS: BACITRACIN OINT 0.9 GM PACK TOP SCH (09:38)
[2016-07-22] MEDS: INSULIN NPH 100 UNIT/ML SUBCUT SCH ×2 (09:38→17:28)
[2016-07-22] MEDS: ATORVASTATIN 20 MG TABLET PEG SCH (09:39)
[2016-07-22] MEDS: amLODIPine 5 MG TABLET PO SCH (09:39)
[2016-07-22] MEDS: DOCUSATE SODIUM 100 MG/10 ML UDCUP PEG SCH ×2 (09:39→20:52)
[2016-07-22] MEDS: SKIN HEALING OINT (AQUAPHOR) 50 GM TUBE TOP PRN (09:39)
[2016-07-22] MEDS: RANITIDINE 150 MG/10 ML 30 ML BOTTLE PEG SCH ×2 (09:40→21:50)
[2016-07-22] MEDS: BISOPROLOL 5 MG TABLET PEG SCH ×2 (09:40→20:52)
[2016-07-22] MEDS: DESITIN 4OZ/NYSTATIN 15 GRAM MIXTURE PASTE TOP SCH ×2 (09:40→20:52)
[2016-07-22] MEDS: SERTRALINE 25 MG TABLET PEG SCH (09:40)
--- NOTE | 2016-07-22 10:09 | Hospitalist Progress Note ---
Assessment and Plan (1) Weight loss Status: Acute Current Visit: No (2) Failure to thrive Status: Chronic Current Visit: No (3) Diabetes mellitus Status: Chronic Current Visit: No Qualifiers: Diabetes mellitus type: type 2 Diabetes mellitus complication status: with skin complications Diabetes mellitus laborer marine terminal insulin use: with mcfp use (4) Aspiration pneumonia Status: Acute Current Visit: Yes (5) Aspiration into airway Status: Acute Current Visit: Yes Qualifiers: Encounter type: subsequent encounter Qualified Code(s): T17.908D - Unspecified foreign body in respiratory tract, part unspecified causing other injury, subsequent encounter (6) Peripheral vascular disease of lower extremity with ulceration Status: Acute Assessment and plan: Plan will be to continue to watch it sugars. He has been on steroids are being transferred back. He seems to interact with questions although E's is nonverbal. His aspiration pneumonia appears that is getting better based on the chest x-ray will continue with antibiotics and steroids. 2 feedings are being advanced. Patient had a severe stroke in the past sometimes he seems like he denies to questions. He does seem like he is at his baseline. Sodium is 160 today. Current Visit: Yes Hospitalist: Subjective Interval history: There have been no acute changes. This Is a 61-year-old with a history of stroke failure to Thrive PEG tube placement and aspiration pneumonia. Exam - Constitutional Vitals: Period Temp Pulse Resp BP Sys/Birch Pulse Ox Last 24 Hr 97 F-98.9 F 75-101 14-85 119-166/71-93 94-100 General appearance: normal weight - Head Head exam: Present: normal inspection - Neck Neck exam: Present: normal inspection - Respiratory Respiratory exam: Present: clear to auscultation bilaterally - Cardiovascular Cardiovascular exam: Present: regular rate and rhythm - GI/Abdominal GI/Abdominal exam: Present: normal bowel sounds - Extremities Exam Extremities exam: Present: normal inspection - Back Exam Back exam: Present: normal inspection Results - Labs CBC & BMP: 07/22/16 06:27 07/22/16 06:27 Specialty Discharge - Follow Up or Referrals Follow up with: Amado Barrett MD [Physician] - (6 weeks)
[2016-07-22] MEDS ORDERED: methylPREDNISolone SOD SUC 40 MG/1 ML VIAL IV SCH (11:30)
[2016-07-22] MEDS: INSULIN REGULAR 100 UNIT/ML SUBCUT SCH ×4 (12:23→20:52)
[2016-07-22] MEDS: ENOXAPARIN 40 MG/0.4 ML SYRINGE SUBCUT SCH (12:24)
[2016-07-22] MEDS: SODIUM CHLORIDE 23.4% CONC INJ 38.5 MEQ in STERILE WATER INJ 1,000 ML IV SCH ×2 (17:03→17:04)
[2016-07-23] MEDS: SODIUM CHLORIDE 23.4% CONC INJ 38.5 MEQ in STERILE WATER INJ 1,000 ML IV SCH ×2 (01:14→04:44)
[2016-07-23 01:22] LABS: Basophils % 0.2 % (0.0-0.8); Eosinophils % 0.1 % (0.00-10.9); Hematocrit 36.8 VOL% (42.0-52.0); Hemoglobin 11.1 GM/DL (14.0-18.0); Immature Granulocytes % 2.6 %; Immature Granulocytes Absolute 0.47 #; Lymphocytes # 2.4 10*3/uL (1.4-4.0); Lymphocytes % 13.5 % (21.2-54.2); Mean Corpuscular HGB Conc 30.2 GM/DL (32-36); Mean Corpuscular Hemoglobin 25 PG (27-34); Monocytes # 1.4 10*3/uL (0.11-0.8); Monocytes % 7.9 % (1.7-12.7); NRBC # 0.04 10*3/uL; Neutrophils # 13.6 10*3/uL (1.4-7.4); Neutrophils % 75.7 % (38.7-73.9); Platelet Count 302 T/CUMM (130-400); Red Blood Count 4.38 MC/CUMM (3.8-5.5); Red Cell Distribution Width 15.4 % (9.3-17.3); White Blood Count 17.9 T/CUMM (4-12)
[2016-07-23 01:59] LABS: Calcium 9.5 MG/DL (8.5-10.1); Magnesium 2.2 MG/DL (1.8-2.4); Osmolality,Calculated 323.3 MOS/KG (273-304); Potassium 4.2 MMOL/L (3.5-5.1)
[2016-07-23] MEDS: CLINDAMYCIN INJ 600 MG in PREMIX 1 EACH IV SCH ×3 (02:08→16:34)
[2016-07-23] MEDS: DEXTROSE 50% 25 GM/50 ML VIAL IV PRN (02:18)
[2016-07-23] MEDS: ALBUTEROL/IPRATROPIUM 3 ML NEB RESP TX SCH ×6 (03:50→23:38)
[2016-07-23] MEDS: PIPERACILLIN/TAZOBACTAM 3,375 MG in SODIUM CHLORIDE 0.9% 100 ML IV SCH ×3 (04:43→21:44)
--- NOTE | 2016-07-23 07:14 | Pulmonology Progress Note ---
Pulmonary - PN: Subj Interval history: This 61-year-old black male has had a previous stroke. Apparently having problems with recurrent aspiration pneumonia. His oxygen levels have improved on the BiPAP facemask. We'll try him back on Ventimask during the day. 07/21/2016 patient is a little more responsive. Looking around. ABGs look good. PO2 is 89 on the Ventimask we'll reduce him to nasal biprong. 07/22/2016 patient seems more alert and is calm. He is noncommunicative. X- ray yesterday was much better. O2 sats 99% on 2 L. Presently on IV antibiotics and steroids and we will start weaning those. 07/23/2016 patient is not having any difficulty with his breathing. He has severe hypernatremia. Defer to nephrology. Exam (Progress Note) - Constitutional Vitals: Period Temp Pulse Resp BP Sys/Birch Pulse Ox Last 24 Hr 97.4 F-99.2 F 75-96 14-25 110-153/65-88 94-100 Exam: Patient's noncommunicative. He is poorly responsive. Vital signs normal. pupils react to light. Face symmetrical. Neck supple no bruits. Chest reveals clear lungs bilaterally. Heart normal rate rhythm no murmurs. Abdomen soft no masses. Bowel sounds present. Extremities no clubbing cyanosis edema. Results - Labs CBC & BMP: 07/23/16 00:46 07/23/16 00:46 Lab Results: I have reviewed the past 24 hour labs Assessment and Plan (1) Diabetes mellitus Status: Chronic Assessment and plan: Glucoses appear fairly well controlled. I'm adding steroids we need to watch these closely. 07/20/2016 glucoses in the low 200s. This is fair control. 07/21/2016 glucoses fairly well controlled. 07/22/2016 blood sugars well controlled. 07/23/2016 hypoglycemia this morning. Being addressed. Current Visit: No Qualifiers: Diabetes mellitus type: type 2 Diabetes mellitus complication status: with skin complications Diabetes mellitus complication detail: with foot ulcer Diabetes mellitus snf insulin use: with termite exterminator helper use Qualified Code(s) : E11.621 - Type 2 diabetes mellitus with foot ulcer (2) History of stroke Status: Chronic Assessment and plan: Previous intraventricular bleed with aphasia, and bedridden state. Would be concerned about control of airway. We'll keep head elevated. 07/20/2016 patient unable to control his airway. Patient fed per PEG tube. Keep head elevated. 07/21/2016 he is a little bit more alert now. Does have hypernatremia. We'll change IV fluids. 07/22/2016 patient seems to respond to questions although he is nonverbal. 07/23/2016 patient nonverbal. Current Visit: No (3) Aspiration pneumonia Status: Acute Assessment and plan: Presently on Zosyn. I will add Cleocin and Solu-Medrol. 07/20/2016 continuing broad-spectrum antibiotics and steroids. Looks a little better today. 07/21/2016 continuing empiric antibiotics and steroids. 07/22/2016 he has responded to antibiotics and steroids. We'll change and give them per feeding tube. 07/23/2016 this is much improved. Current Visit: Yes (4) Neurologic abnormality Status: Chronic Assessment and plan: Has devastating neurologic effects of previous bleed. My concern at present is whether he can control his airway. He is being fed through a PEG tube. I think it would keep his head elevated would be all right with the BiPAP. If he has any vomiting we will have to intubate. If oxygen saturation drops further we will have to intubate. Await word from family on what their wishes are. 07/20/2016 patient not interactive. Probably cannot defend his airway. 07/21/2016 patient a little bit more alert. 07/22/16 today and has had a severe stroke in the past. He does nod somewhat to questions but does not talk. 07/23/2016 previous stroke plus severe hypernatremia. Current Visit: Yes (5) Hypernatremia Status: Resolved Assessment and plan: Sodium is 159. He is getting normal saline. I will change him to one quarter normal saline due to hypernatremia and diabetes. 07/22/2016 chemistries pending this morning. 07/23/2016 sodium 162. We need to get this down less than 150. Defer to nephrology. Current Visit: No Specialty Discharge - Follow Up or Referrals Follow up with: Amado Barrett MD [Physician] - (6 weeks)
[2016-07-23] MEDS: DEXTROSE 5% 1,000 ML IV SCH ×2 (08:21→16:37)
[2016-07-23] MEDS: methylPREDNISolone SOD SUC 40 MG/1 ML VIAL IV SCH (08:23)
[2016-07-23] MEDS: BISOPROLOL 5 MG TABLET PEG SCH ×2 (08:24→21:46)
[2016-07-23] MEDS: ATORVASTATIN 20 MG TABLET PEG SCH (08:24)
[2016-07-23] MEDS: DOCUSATE SODIUM 100 MG/10 ML UDCUP PEG SCH ×2 (08:24→21:44)
[2016-07-23] MEDS: BACITRACIN OINT 0.9 GM PACK TOP SCH (08:24)
[2016-07-23] MEDS: amLODIPine 5 MG TABLET PO SCH (08:24)
[2016-07-23] MEDS: SERTRALINE 25 MG TABLET PEG SCH (08:24)
[2016-07-23] MEDS: INSULIN NPH 100 UNIT/ML SUBCUT SCH ×2 (08:24→16:33)
[2016-07-23] MEDS: INSULIN REGULAR 100 UNIT/ML SUBCUT SCH ×4 (08:25→21:45)
[2016-07-23] MEDS: RANITIDINE 150 MG/10 ML 30 ML BOTTLE PEG SCH ×2 (08:26→21:45)
[2016-07-23] MEDS: DESITIN 4OZ/NYSTATIN 15 GRAM MIXTURE PASTE TOP SCH ×2 (08:26→21:45)
--- NOTE | 2016-07-23 09:49 | Hospitalist Progress Note ---
Assessment and Plan (1) Weight loss Status: Acute Current Visit: No (2) Failure to thrive Status: Chronic Current Visit: No (3) Diabetes mellitus Status: Chronic Current Visit: No Qualifiers: Diabetes mellitus type: type 2 Diabetes mellitus complication status: with skin complications Diabetes mellitus terminal operations supervisor insulin use: with jail use (4) Aspiration pneumonia Status: Acute Current Visit: Yes (5) Aspiration into airway Status: Acute Current Visit: Yes Qualifiers: Encounter type: subsequent encounter Qualified Code(s): T17.908D - Unspecified foreign body in respiratory tract, part unspecified causing other injury, subsequent encounter (6) Peripheral vascular disease of lower extremity with ulceration Status: Acute Assessment and plan: Plan will be to continue to watch it sugars. He has been on steroids are being transferred back. He seems to interact with questions although E's is nonverbal. His aspiration pneumonia appears that is getting better based on the chest x-ray will continue with antibiotics and steroids. 2 feedings are being advanced. Patient had a severe stroke in the past sometimes he seems like he denies to questions. He does seem like he is at his baseline. Sodium is 160 today. 07/23/16 patient sodium is now up to 162. It seems to me that he has some dehydration still present. Dr. Baez's consult to nephrology which is appropriate. He has D5W at 100. Of feel comfortable transferring him upstairs as long as he isn't a room close to the nurses station Current Visit: Yes Hospitalist: Subjective Interval history: No acute events over the night. Patient still with elevated white count and elevated sodium Exam - Constitutional Vitals: Period Temp Pulse Resp BP Sys/Birch Pulse Ox Last 24 Hr 97.4 F-99.2 F 75-96 14-26 110-153/62-88 94-100 General appearance: normal weight neurologically impared from a stroke - Head Head exam: Present: normal inspection - Neck Neck exam: Present: normal inspection - Respiratory Respiratory exam: Present: clear to auscultation bilaterally - Cardiovascular Cardiovascular exam: Present: regular rate and rhythm - GI/Abdominal GI/Abdominal exam: Present: normal bowel sounds - Extremities Exam Extremities exam: Present: normal inspection - Back Exam Back exam: Present: normal inspection Results - Labs CBC & BMP: 07/23/16 00:46 07/23/16 00:46 Specialty Discharge - Follow Up or Referrals Follow up with: Amado Barrett MD [Physician] - (6 weeks)
[2016-07-23] MEDS: SKIN HEALING OINT (AQUAPHOR) 50 GM TUBE TOP PRN (11:00)
[2016-07-23] MEDS: ENOXAPARIN 40 MG/0.4 ML SYRINGE SUBCUT SCH (12:32)
--- NOTE | 2016-07-23 14:43 | Physician Query Form ---
CLICK EDIT DOCUMENT TO SELECT QUERY ANSWER --> OK --> SIGN Rosey Martines RN Clinical Hot Cell Technician W) [phone] (f) [phone] [email or web address]: Make your selection(s) from the choices in EACH section by typing an "x" and enter comments in the comment section. Please use your independent medical judgment in providing your response. This request does not imply that any particular answer is desired or expected. CLINICAL INDICATORS: (Providers should not edit this section) Based on documentation of " This morning he was found to be more dyspneic tachypnea and hypoxemic and was moved to the intensive care unit. At the present time he is on BiPAP and his O2 sats is in the low to mid 90s." If possible, please further clarify the type and acuity of respiratory diagnosis : ACUITY: ( x) Acute ( ) Chronic ( ) Acute on Chronic TYPE: ( x) Respiratory failure with hypoxia ( ) Respiratory failure with hypercapnia ( ) Respiratory Arrest ( ) Postprocedural/postoperative respiratory failure ( ) Respiratory Insufficiency ( ) ARDS (Adult/Acute Respiratory Distress Syndrome) ( ) Other, please specify: ( ) Clinically unable to determine Recognized criteria for respiratory failure PH <7.35 or >7.45 PO2 <60 PCO2 >50 RR >24 O2 Sat <90% on RA or <95% on O2 Use of accessory muscles Unable to speak in full sentences Intubation is not required COMMENTS: Use of terms such as suspected, likely, or probable (associated with a specific diagnosis that is being evaluated, monitored, or treated as if it exists) are acceptable and can be restated in the discharge summary if not ruled out. MTDD
[2016-07-24] MEDS: CLINDAMYCIN INJ 600 MG in PREMIX 1 EACH IV SCH (02:30)
[2016-07-24] MEDS: ALBUTEROL/IPRATROPIUM 3 ML NEB RESP TX SCH ×6 (02:34→23:54)
[2016-07-24] MEDS: DEXTROSE 5% 1,000 ML IV SCH ×3 (04:14→16:55)
[2016-07-24 04:18] LABS: Calcium 9.4 MG/DL (8.5-10.1); Magnesium 2.3 MG/DL (1.8-2.4); Osmolality,Calculated 322.5 MOS/KG (273-304); Potassium 3.5 MMOL/L (3.5-5.1)
[2016-07-24] MEDS: PIPERACILLIN/TAZOBACTAM 3,375 MG in SODIUM CHLORIDE 0.9% 100 ML IV SCH (05:33)
[2016-07-24] MEDS: INSULIN NPH 100 UNIT/ML SUBCUT SCH ×2 (07:25→18:13)
[2016-07-24] MEDS: INSULIN REGULAR 100 UNIT/ML SUBCUT SCH ×4 (07:32→20:51)
[2016-07-24] MEDS: DEXTROSE 50% 25 GM/50 ML VIAL IV PRN (07:34)
[2016-07-24] MEDS: DESITIN 4OZ/NYSTATIN 15 GRAM MIXTURE PASTE TOP SCH ×2 (09:00→20:51)
--- NOTE | 2016-07-24 09:32 | Pulmonology Progress Note ---
Pulmonary - PN: Subj Interval history: This 61-year-old black male has had a previous stroke. Apparently having problems with recurrent aspiration pneumonia. His oxygen levels have improved on the BiPAP facemask. We'll try him back on Ventimask during the day. 07/21/2016 patient is a little more responsive. Looking around. ABGs look good. PO2 is 89 on the Ventimask we'll reduce him to nasal biprong. 07/22/2016 patient seems more alert and is calm. He is noncommunicative. X- ray yesterday was much better. O2 sats 99% on 2 L. Presently on IV antibiotics and steroids and we will start weaning those. 07/23/2016 patient is not having any difficulty with his breathing. He has severe hypernatremia. Defer to nephrology. 07/24/16 O2 sats look good. Pneumonia has essentially resolved. We'll change to oral antibiotics and prednisone for a few days. Still needs to get his sodium down. Nephrology is to see him. Exam (Progress Note) - Constitutional Vitals: Period Temp Pulse Resp BP Sys/Birch Pulse Ox Last 24 Hr 97.9 F-98.5 F 73-80 14-24 107-139/65-71 96-100 Exam: Patient's noncommunicative. He is poorly responsive. Vital signs normal. pupils react to light. Face symmetrical. Neck supple no bruits. Chest reveals clear lungs bilaterally. Heart normal rate rhythm no murmurs. Abdomen soft no masses. Bowel sounds present. Extremities no clubbing cyanosis edema. Little change from yesterday. Results - Labs CBC & BMP: 07/23/16 00:46 07/24/16 03:13 Lab Results: I have reviewed the past 24 hour labs Assessment and Plan (1) Diabetes mellitus Status: Chronic Assessment and plan: Glucoses appear fairly well controlled. I'm adding steroids we need to watch these closely. 07/20/2016 glucoses in the low 200s. This is fair control. 07/21/2016 glucoses fairly well controlled. 07/22/2016 blood sugars well controlled. 07/23/2016 hypoglycemia this morning. Being addressed. 07/24/16 glucoses better. Again had episode of hypoglycemia earlier. Current Visit: No Qualifiers: Diabetes mellitus type: type 2 Diabetes mellitus complication status: with skin complications Diabetes mellitus complication detail: with foot ulcer Diabetes mellitus residential insulin use: with terminal system operator use Qualified Code(s) : E11.621 - Type 2 diabetes mellitus with foot ulcer (2) History of stroke Status: Chronic Assessment and plan: Previous intraventricular bleed with aphasia, and bedridden state. Would be concerned about control of airway. We'll keep head elevated. 07/20/2016 patient unable to control his airway. Patient fed per PEG tube. Keep head elevated. 07/21/2016 he is a little bit more alert now. Does have hypernatremia. We'll change IV fluids. 07/22/2016 patient seems to respond to questions although he is nonverbal. 07/23/2016 patient nonverbal. 07/24/16 patient nonverbal. Current Visit: No (3) Aspiration pneumonia Status: Acute Assessment and plan: Presently on Zosyn. I will add Cleocin and Solu-Medrol. 07/20/2016 continuing broad-spectrum antibiotics and steroids. Looks a little better today. 07/21/2016 continuing empiric antibiotics and steroids. 07/22/2016 he has responded to antibiotics and steroids. We'll change and give them per feeding tube. 07/23/2016 this is much improved. 07/24/16 improved. Change to oral antibiotics and steroids. I will sign off. Please call if needed further. Current Visit: Yes (4) Neurologic abnormality Status: Chronic Assessment and plan: Has devastating neurologic effects of previous bleed. My concern at present is whether he can control his airway. He is being fed through a PEG tube. I think it would keep his head elevated would be all right with the BiPAP. If he has any vomiting we will have to intubate. If oxygen saturation drops further we will have to intubate. Await word from family on what their wishes are. 07/20/2016 patient not interactive. Probably cannot defend his airway. 07/21/2016 patient a little bit more alert. 07/22/16 today and has had a severe stroke in the past. He does nod somewhat to questions but does not talk. 07/23/2016 previous stroke plus severe hypernatremia. Current Visit: Yes (5) Hypernatremia Status: Resolved Assessment and plan: Sodium is 159. He is getting normal saline. I will change him to one quarter normal saline due to hypernatremia and diabetes. 07/22/2016 chemistries pending this morning. 07/23/2016 sodium 162. We need to get this down less than 150. Defer to nephrology. 07/24/16 sodium is 161. Getting D5W. Nephrology is to see. Current Visit: No Specialty Discharge - Follow Up or Referrals Follow up with: Amado Barrett MD [Physician] - (6 weeks)
[2016-07-24] MEDS ORDERED: methylPREDNISolone SOD SUC 40 MG/1 ML VIAL IV ONE (10:00)
[2016-07-24] MEDS: methylPREDNISolone SOD SUC 40 MG/1 ML VIAL IV SCH (10:55)
[2016-07-24] MEDS: amLODIPine 5 MG TABLET PO SCH (10:58)
[2016-07-24] MEDS: BISOPROLOL 5 MG TABLET PEG SCH ×2 (10:58→20:51)
[2016-07-24] MEDS: RANITIDINE 150 MG/10 ML 30 ML BOTTLE PEG SCH ×2 (10:58→21:53)
[2016-07-24] MEDS: ATORVASTATIN 20 MG TABLET PEG SCH (10:58)
[2016-07-24] MEDS: SERTRALINE 25 MG TABLET PEG SCH (10:58)
[2016-07-24] MEDS: DOCUSATE SODIUM 100 MG/10 ML UDCUP PEG SCH ×2 (10:58→20:51)
[2016-07-24] MEDS: ENOXAPARIN 40 MG/0.4 ML SYRINGE SUBCUT SCH (13:45)
[2016-07-24] MEDS: AMOXICILLIN/CLAV 500 MG TABLET PO SCH ×2 (13:45→18:13)
[2016-07-24] MEDS: BACITRACIN OINT 0.9 GM PACK TOP SCH (14:10)
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
--- NOTE | 2016-07-24 14:58 | Hospitalist Progress Note ---
Assessment and Plan (1) Weight loss Status: Acute Current Visit: No (2) Failure to thrive Status: Chronic Current Visit: No (3) Diabetes mellitus Status: Chronic Current Visit: No Qualifiers: Diabetes mellitus type: type 2 Diabetes mellitus complication status: with skin complications Diabetes mellitus manager process excellence insulin use: with prison use (4) Aspiration pneumonia Status: Acute Current Visit: Yes (5) Aspiration into airway Status: Acute Current Visit: Yes Qualifiers: Encounter type: subsequent encounter Qualified Code(s): T17.908D - Unspecified foreign body in respiratory tract, part unspecified causing other injury, subsequent encounter (6) Peripheral vascular disease of lower extremity with ulceration Status: Acute Assessment and plan: Plan will be to continue to watch it sugars. He has been on steroids are being transferred back. He seems to interact with questions although E's is nonverbal. His aspiration pneumonia appears that is getting better based on the chest x-ray will continue with antibiotics and steroids. 2 feedings are being advanced. Patient had a severe stroke in the past sometimes he seems like he denies to questions. He does seem like he is at his baseline. Sodium is 160 today. 07/23/16 patient sodium is now up to 162. It seems to me that he has some dehydration still present. Dr. Baez's consult to nephrology which is appropriate. He has D5W at 100. Of feel comfortable transferring him upstairs as long as he isn't a room close to the nurses station 07/24/16 patient seems fairly stable. Dr. Baez is signed off. Can order a chemistry in the morning to evaluate the sodium. Once we get the sodium within a reasonable level should be able to transfer him back to the alf Current Visit: Yes Hospitalist: Subjective Interval history: No acute events noted during the night Exam - Constitutional Vitals: Period Temp Pulse Resp BP Sys/Birch Pulse Ox Last 24 Hr 97.9 F-98.5 F 73-80 16-24 107-114/65-76 96-100 General appearance: normal weight neurologically impared from a stroke - Head Head exam: Present: normal inspection - Neck Neck exam: Present: normal inspection - Respiratory Respiratory exam: Present: clear to auscultation bilaterally - Cardiovascular Cardiovascular exam: Present: regular rate and rhythm - GI/Abdominal GI/Abdominal exam: Present: normal bowel sounds - Extremities Exam Extremities exam: Present: normal inspection - Back Exam Back exam: Present: normal inspection Results - Labs CBC & BMP: 07/23/16 00:46 07/24/16 03:13 Specialty Discharge - Follow Up or Referrals Follow up with: Amado Barrett MD [Physician] - (6 weeks)
[2016-07-25] MEDS: AMOXICILLIN/CLAV 500 MG TABLET PO SCH ×3 (02:10→18:45)
[2016-07-25] MEDS: ALBUTEROL/IPRATROPIUM 3 ML NEB RESP TX SCH ×6 (02:47→23:55)
[2016-07-25] MEDS: DEXTROSE 5% 1,000 ML IV SCH ×3 (02:54→23:45)
[2016-07-25 06:32] LABS: Calcium 8.8 MG/DL (8.5-10.1); Osmolality,Calculated 314.2 MOS/KG (273-304); Potassium 3.3 MMOL/L (3.5-5.1)
[2016-07-25] MEDS: DESITIN 4OZ/NYSTATIN 15 GRAM MIXTURE PASTE TOP SCH ×2 (08:30→20:47)
[2016-07-25] MEDS: INSULIN NPH 100 UNIT/ML SUBCUT SCH ×2 (09:33→16:38)
[2016-07-25] MEDS: INSULIN REGULAR 100 UNIT/ML SUBCUT SCH ×4 (09:34→20:47)
[2016-07-25] MEDS: DOCUSATE SODIUM 100 MG/10 ML UDCUP PEG SCH ×2 (09:36→20:48)
[2016-07-25] MEDS: BACITRACIN OINT 0.9 GM PACK TOP SCH (09:36)
[2016-07-25] MEDS: ATORVASTATIN 20 MG TABLET PEG SCH (09:36)
[2016-07-25] MEDS: amLODIPine 5 MG TABLET PO SCH (09:36)
[2016-07-25] MEDS: SERTRALINE 25 MG TABLET PEG SCH (09:36)
[2016-07-25] MEDS: BISOPROLOL 5 MG TABLET PEG SCH ×2 (09:36→20:47)
[2016-07-25] MEDS: predniSONE 20 MG TABLET PO SCH (09:36)
[2016-07-25] MEDS: RANITIDINE 150 MG/10 ML 30 ML BOTTLE PEG SCH ×2 (09:37→20:48)
[2016-07-25] MEDS: ENOXAPARIN 40 MG/0.4 ML SYRINGE SUBCUT SCH (12:11)
--- NOTE | 2016-07-25 13:19 | Hospitalist Progress Note ---
Assessment and Plan (1) Weight loss Status: Acute Current Visit: No (2) Failure to thrive Status: Chronic Current Visit: No (3) Diabetes mellitus Status: Chronic Current Visit: No Qualifiers: Diabetes mellitus type: type 2 Diabetes mellitus complication status: with skin complications Diabetes mellitus termite control representative insulin use: with fdc use (4) Aspiration pneumonia Status: Acute Current Visit: Yes (5) Aspiration into airway Status: Acute Current Visit: Yes Qualifiers: Encounter type: subsequent encounter Qualified Code(s): T17.908D - Unspecified foreign body in respiratory tract, part unspecified causing other injury, subsequent encounter (6) Peripheral vascular disease of lower extremity with ulceration Status: Acute Assessment and plan: Plan will be to continue to watch it sugars. He has been on steroids are being transferred back. He seems to interact with questions although E's is nonverbal. His aspiration pneumonia appears that is getting better based on the chest x-ray will continue with antibiotics and steroids. 2 feedings are being advanced. Patient had a severe stroke in the past sometimes he seems like he denies to questions. He does seem like he is at his baseline. Sodium is 160 today. 07/23/16 patient sodium is now up to 162. It seems to me that he has some dehydration still present. Dr. Baez's consult to nephrology which is appropriate. He has D5W at 100. Of feel comfortable transferring him upstairs as long as he isn't a room close to the nurses station 07/24/16 patient seems fairly stable. Dr. Baez is signed off. Can order a chemistry in the morning to evaluate the sodium. Once we get the sodium within a reasonable level should be able to transfer him back to the detention 07/25/16 we'll continue to monitor his sodium. Is come down to 156. Continue with fluids as previously prescribed. Once his sodium gets within a reasonable level should be oh transfer back to the detention. Need to replete his potassium. Current Visit: Yes Hospitalist: Subjective Interval history: No acute events Exam - Constitutional Vitals: Period Temp Pulse Resp BP Sys/Birch Pulse Ox Last 24 Hr 98.0 F-98.9 F 74-84 16-20 106-113/60-70 97-100 General appearance: normal weight neurologically impared from a stroke - Head Head exam: Present: normal inspection - Neck Neck exam: Present: normal inspection - Respiratory Respiratory exam: Present: clear to auscultation bilaterally - Cardiovascular Cardiovascular exam: Present: regular rate and rhythm - GI/Abdominal GI/Abdominal exam: Present: normal bowel sounds - Extremities Exam Extremities exam: Present: normal inspection - Back Exam Back exam: Present: normal inspection Results - Labs CBC & BMP: 07/23/16 00:46 07/25/16 05:11 Specialty Discharge - Follow Up or Referrals Follow up with: Amado Barrett MD [Physician] - (6 weeks)
--- NOTE | 2016-07-25 13:37 | Nephrology Progress Note ---
Nephrology - PN: Subj Interval history: No change in neurologic status. He appears comfortable. Exam (PN)-Nephrology - Vital Signs Vital signs: Period Temp Pulse Resp BP Sys/Birch Pulse Ox Last 24 Hr 98.0 F-98.9 F 74-84 16-20 106-113/60-70 97-100 Exam: Gen.: Awake but not responsive to voice Cardiovascular: Regular rate and rhythm. No murmur rub or gallop Lungs: Clear Extremities: No edema - Lab 07/23/16 00:46 07/25/16 05:11 Most recent lab results ABG pH 7.423 (7.35-7.45) 07/21/16 02:55 ABG pCO2 55.5 MM HG (35-48) H 07/21/16 02:55 ABG pO2 89.5 MM HG (80-95) 07/21/16 02:55 ABG HCO3 35.4 MMOL/L (20-26) H 07/21/16 02:55 ABG O2 Saturation 96.3 % (95-100) 07/21/16 02:55 Calcium 8.8 MG/DL (8.5-10.1) 07/25/16 05:11 Phosphorus 3.5 MG/DL (2.5-4.9) 07/22/16 06:27 Magnesium 2.3 MG/DL (1.8-2.4) 07/24/16 03:13 Assessment and Plan (1) Hypernatremia Status: Acute Assessment and plan: 61-year-old man admitted with: * Cerebrovascular disease. Prior CVA with significant disability * Hypernatremia. This is improving. Continue hypotonic fluid. * Pneumonia * Diabetes mellitus * Peripheral vascular disease Current Visit: No (2) Aspiration pneumonia Status: Acute Current Visit: Yes (3) Peripheral vascular disease of lower extremity with ulceration Status: Acute Current Visit: Yes (4) Debility Status: Chronic Current Visit: No (5) Diabetes mellitus Status: Chronic Current Visit: No Qualifiers: Diabetes mellitus type: type 2 Diabetes mellitus complication status: with skin complications Diabetes mellitus termite control representative insulin use: with termite control representative use (6) History of stroke Status: Chronic Current Visit: No Specialty Discharge - Follow Up or Referrals Follow up with: Amado Barrett MD [Physician] - (6 weeks)
[2016-07-25] MEDS: POTASSIUM CHLORIDE 20 MEQ/15 ML UDCUP PER TUBE PRN (20:47)
[2016-07-26] MEDS: AMOXICILLIN/CLAV 500 MG TABLET PO SCH (02:09)
[2016-07-26] MEDS: ALBUTEROL/IPRATROPIUM 3 ML NEB RESP TX SCH ×6 (03:53→23:48)
[2016-07-26 06:55] LABS: Osmolality,Calculated 305.3 MOS/KG (273-304); Potassium 3.4 MMOL/L (3.5-5.1)
[2016-07-26] MEDS: INSULIN REGULAR 100 UNIT/ML SUBCUT SCH ×4 (09:53→20:55)
[2016-07-26] MEDS: INSULIN NPH 100 UNIT/ML SUBCUT SCH ×2 (09:56→17:22)
[2016-07-26] MEDS: SERTRALINE 25 MG TABLET PEG SCH (09:57)
[2016-07-26] MEDS: ATORVASTATIN 20 MG TABLET PEG SCH (09:57)
[2016-07-26] MEDS: predniSONE 20 MG TABLET PO SCH (09:57)
[2016-07-26] MEDS: BACITRACIN OINT 0.9 GM PACK TOP SCH (09:57)
[2016-07-26] MEDS: DOCUSATE SODIUM 100 MG/10 ML UDCUP PEG SCH ×2 (09:58→20:55)
[2016-07-26] MEDS: POTASSIUM CHLORIDE 20 MEQ/15 ML UDCUP PER TUBE PRN (09:58)
[2016-07-26] MEDS: DESITIN 4OZ/NYSTATIN 15 GRAM MIXTURE PASTE TOP SCH ×2 (09:59→20:58)
[2016-07-26] MEDS: RANITIDINE 150 MG/10 ML 30 ML BOTTLE PEG SCH ×2 (10:00→20:57)
[2016-07-26] MEDS: BISOPROLOL 5 MG TABLET PEG SCH ×2 (10:00→20:55)
[2016-07-26] MEDS: amLODIPine 5 MG TABLET PO SCH (10:00)
[2016-07-26] MEDS: DEXTROSE 5% 1,000 ML IV SCH ×2 (10:13→16:34)
--- NOTE | 2016-07-26 10:16 | General Surgery Progress Note ---
Assessment and Plan - Time spent with patient Time spent with patient: Less than 30 minutes (1) Peripheral vascular disease of lower extremity with ulceration Status: Acute Assessment and plan: 07/26/16 Left lower extremity foot wound-improving with conservative/local care. There is nothing at this point to suggest infection or ischemic progression. OK to continue present wound care and return to SNF at any point. We'll just allow wound care or staff nurses to follow up unless there are problems or changes. 07/18/16 Stable left lower extremity diabetic foot wounds with peripheral vascular disease. I see no progression, nothing to suggest infection at this time. We'll continue to watch this while he's here, but he could easily transition to his current wound protocol whenever he's ready for discharge back to his SNF situation. WE'll add some topical antibiotic ointment and a band aid to the left 2nd toe until the avulsion wound heals. 07/17/16 Lower extremity peripheral vascular disease with diabetic foot ulcer and open tendon on the left-I see no gross clinical signs of infection or any progressive ischemic change. We'll just begin local care and offload these areas , watch for signs of progression or infection, and continue tube feedings. The adjacent skin should autolytically debride with Hydrogel/adaptic, avoiding an OR visit in this high risk patient, and the open tendon will need to be kept moist in order to salvage it, but he's not very mobile at this point so I don't feel we should be very aggressive in trying to close the area as long as he is having no problems with infection or progressive ischemia. Current Visit: Yes (2) Status post amputation of toe of left foot Status: Acute Current Visit: No (3) Diabetic foot ulcer associated with type 2 diabetes mellitus Status: Chronic Current Visit: No Qualifiers: Laterality: left Qualified Code(s): E11.621 - Type 2 diabetes mellitus with foot ulcer; L97.529 - Non-pressure chronic ulcer of other part of left foot with unspecified severity Exam - Constitutional Vitals: Period Temp Pulse Resp BP Sys/Birch Pulse Ox Last 24 Hr 96.8 F-99.4 F 75-88 16-22 109-125/63-68 98-100 General appearance: no acute distress - Extremities Exam Extremities exam: Present: other (LLE wound is clean and there is no ischemic change. The medial foot ulcer is moist and is autolytically debriding nicely. I see no new pressure areas or skin issues.) Results - Labs CBC & BMP: 07/23/16 00:46 07/26/16 06:08 Specialty Discharge - Follow Up or Referrals Follow up with: Amado Barrett MD [Physician] - (6 weeks)
--- NOTE | 2016-07-26 10:33 | Hospitalist Progress Note ---
Assessment and Plan (1) Weight loss Status: Acute Current Visit: No (2) Failure to thrive Status: Chronic Current Visit: No (3) Diabetes mellitus Status: Chronic Current Visit: No Qualifiers: Diabetes mellitus type: type 2 Diabetes mellitus complication status: with skin complications Diabetes mellitus exterminator helper insulin use: with care home use (4) Aspiration pneumonia Status: Acute Current Visit: Yes (5) Aspiration into airway Status: Acute Current Visit: Yes Qualifiers: Encounter type: subsequent encounter Qualified Code(s): T17.908D - Unspecified foreign body in respiratory tract, part unspecified causing other injury, subsequent encounter (6) Peripheral vascular disease of lower extremity with ulceration Status: Acute Assessment and plan: Plan will be to continue to watch it sugars. He has been on steroids are being transferred back. He seems to interact with questions although E's is nonverbal. His aspiration pneumonia appears that is getting better based on the chest x-ray will continue with antibiotics and steroids. 2 feedings are being advanced. Patient had a severe stroke in the past sometimes he seems like he denies to questions. He does seem like he is at his baseline. Sodium is 160 today. 07/23/16 patient sodium is now up to 162. It seems to me that he has some dehydration still present. Dr. Baez's consult to nephrology which is appropriate. He has D5W at 100. Of feel comfortable transferring him upstairs as long as he isn't a room close to the nurses station 07/24/16 patient seems fairly stable. Dr. Baez is signed off. Can order a chemistry in the morning to evaluate the sodium. Once we get the sodium within a reasonable level should be able to transfer him back to the shelter 07/25/16 we'll continue to monitor his sodium. Is come down to 156. Continue with fluids as previously prescribed. Once his sodium gets within a reasonable level should be oh transfer back to the shelter. Need to replete his potassium. 07/26/16 sodium is 155 today. Continue with fluids it as directed by renal. Once his sodium is 145 or below we'll transfer him back to shelter Current Visit: Yes Hospitalist: Subjective Interval history: No acute events during the night Exam - Constitutional Vitals: Period Temp Pulse Resp BP Sys/Birch Pulse Ox Last 24 Hr 96.8 F-99.4 F 75-88 16-22 106-125/57-68 98-100 General appearance: normal weight neurologically impared from a stroke actually more awake today - Head Head exam: Present: normal inspection - Neck Neck exam: Present: normal inspection - Respiratory Respiratory exam: Present: clear to auscultation bilaterally - Cardiovascular Cardiovascular exam: Present: regular rate and rhythm - GI/Abdominal GI/Abdominal exam: Present: normal bowel sounds - Extremities Exam Extremities exam: Present: normal inspection - Back Exam Back exam: Present: normal inspection Results - Labs CBC & BMP: 07/23/16 00:46 07/26/16 06:08 Specialty Discharge - Follow Up or Referrals Follow up with: Amado Barrett MD [Physician] - (6 weeks)
--- NOTE | 2016-07-26 12:35 | Nephrology Progress Note ---
Nephrology - PN: Subj Interval history: He is more alert today and is attempting to talk. Exam (PN)-Nephrology - Vital Signs Vital signs: Period Temp Pulse Resp BP Sys/Birch Pulse Ox Last 24 Hr 96.8 F-99.4 F 75-88 16-22 106-125/57-66 98-100 Exam: Gen.: More alert Cardiovascular: Regular rate and rhythm. No murmur rub or gallop Lungs: Clear Abdomen: PEG tube present Extremities: No edema - Lab 07/23/16 00:46 07/26/16 06:08 Most recent lab results ABG pH 7.423 (7.35-7.45) 07/21/16 02:55 ABG pCO2 55.5 MM HG (35-48) H 07/21/16 02:55 ABG pO2 89.5 MM HG (80-95) 07/21/16 02:55 ABG HCO3 35.4 MMOL/L (20-26) H 07/21/16 02:55 ABG O2 Saturation 96.3 % (95-100) 07/21/16 02:55 Calcium 9.0 MG/DL (8.5-10.1) 07/26/16 06:08 Phosphorus 3.5 MG/DL (2.5-4.9) 07/22/16 06:27 Magnesium 2.3 MG/DL (1.8-2.4) 07/24/16 03:13 Assessment and Plan (1) Hypernatremia Status: Acute Assessment and plan: 61-year-old man admitted with: * Cerebrovascular disease. Prior CVA with significant disability. Mental status improving * Hypernatremia. This is improving. Continue hypotonic fluid. * Pneumonia * Diabetes mellitus * Peripheral vascular disease Current Visit: No (2) Aspiration pneumonia Status: Acute Current Visit: Yes (3) Peripheral vascular disease of lower extremity with ulceration Status: Acute Current Visit: Yes (4) Debility Status: Chronic Current Visit: No (5) Diabetes mellitus Status: Chronic Current Visit: No Qualifiers: Diabetes mellitus type: type 2 Diabetes mellitus complication status: with skin complications Diabetes mellitus snf insulin use: with snf use (6) History of stroke Status: Chronic Current Visit: No Specialty Discharge - Follow Up or Referrals Follow up with: Amado Barrett MD [Physician] - (6 weeks)
[2016-07-26] MEDS: ENOXAPARIN 40 MG/0.4 ML SYRINGE SUBCUT SCH (13:10)
[2016-07-27] MEDS: ALBUTEROL/IPRATROPIUM 3 ML NEB RESP TX SCH ×4 (03:22→16:31)
[2016-07-27 05:40] LABS: Basophils % 0.2 % (0.0-0.8); Eosinophils # 0.1 10*3/uL (0.0-0.87); Eosinophils % 1.1 % (0.00-10.9); Immature Granulocytes % 0.8 %; Immature Granulocytes Absolute 0.09 #; Lymphocytes # 2.2 10*3/uL (1.4-4.0); Lymphocytes % 19.3 % (21.2-54.2); Mean Corpuscular Hemoglobin 26 PG (27-34); Mean Corpuscular Volume 82.6 FL (87-102); Mean Platelet Volume 12.6 FL (9.6-12.0); Monocytes # 1.3 10*3/uL (0.11-0.8); Monocytes % 11.7 % (1.7-12.7); Neutrophils # 7.7 10*3/uL (1.4-7.4); Neutrophils % 66.9 % (38.7-73.9); Platelet Count 237 T/CUMM (130-400); Red Blood Count 3.51 MC/CUMM (3.8-5.5); Red Cell Distribution Width 15.1 % (9.3-17.3); White Blood Count 11.4 T/CUMM (4-12)
[2016-07-27] MEDS: DEXTROSE 5% 1,000 ML IV SCH ×2 (05:46→13:24)
[2016-07-27 06:15] LABS: Calcium 8.7 MG/DL (8.5-10.1); Potassium 3.6 MMOL/L (3.5-5.1)
[2016-07-27] MEDS: INSULIN REGULAR 100 UNIT/ML SUBCUT SCH ×3 (07:30→17:05)
[2016-07-27] MEDS: RANITIDINE 150 MG/10 ML 30 ML BOTTLE PEG SCH (09:09)
[2016-07-27] MEDS: ATORVASTATIN 20 MG TABLET PEG SCH (09:09)
[2016-07-27] MEDS: SERTRALINE 25 MG TABLET PEG SCH (09:09)
[2016-07-27] MEDS: predniSONE 20 MG TABLET PO SCH (09:09)
[2016-07-27] MEDS: amLODIPine 5 MG TABLET PO SCH (09:09)
[2016-07-27] MEDS: BISOPROLOL 5 MG TABLET PEG SCH (09:09)
[2016-07-27] MEDS: DOCUSATE SODIUM 100 MG/10 ML UDCUP PEG SCH (09:09)
[2016-07-27] MEDS: BACITRACIN OINT 0.9 GM PACK TOP SCH (09:10)
[2016-07-27] MEDS: DESITIN 4OZ/NYSTATIN 15 GRAM MIXTURE PASTE TOP SCH (09:10)
[2016-07-27] MEDS: INSULIN NPH 100 UNIT/ML SUBCUT SCH ×2 (11:46→17:05)
--- NOTE | 2016-07-27 12:08 | Discharge Summary ---
Hospital Course - Hospital Course Hospital Course: Mr. Baig was admitted with aspiration pneumonia and severe hypernatremia. He is responded well to antibiotic treatment and free water replacement. Surgery followed for wound care with respect to his left heel ulcer. We will also continue diabetic treatment with his current medications at the [facility]. He will finish a course of antibiotics via PEG tube and wound care per surgery. I would also recommend current tube feeds with adequate free water replacement, 75 mL an hour. - Time spent with patient Time with patient DS: Greater than 30 minutes Diagnosis - Discharge Diagnosis (1) Aspiration pneumonia Status: Acute (2) Dehydration with hypernatremia Status: Acute (3) Peripheral vascular disease of lower extremity with ulceration Status: Acute (4) Diabetes mellitus Status: Chronic Specialty Discharge - Follow Up or Referrals Follow up with: Amado Barrett MD [Physician] - (6 weeks) - Speciality Discharge Instructions Hospitalist Instructions: Continue wound care to the heel ulcer per surgery instructions. Continue current tube feed rate with free water flush of 75 mL an hour. Discharge Plan - Discharge Data Disposition: Disch/Xfer to Snf Condition at Discharge: Stable - Discharge Medications New Cefuroxime Liquid [Ceftin Liquid] 500 mg PO BID 5 Days Insulin Regular [HumuLIN R] See Protocol SUBCUT ACHS injection Acetaminophen Supp [Tylenol Supp] 325 mg RECTAL Q6H PRN #0 supp PRN Reason: Fever Albuterol/Ipratropium Neb [Duoneb] 3 ml RESP TX RT Q4H nebulization solution Clindamycin Liquid [Cleocin Liquid] 300 mg PO Q8HR 5 Days Dextrose 50% [D50] 25 gm IV PRN PRN #0 vial PRN Reason: Hypoglycemia with IV access Enoxaparin [Lovenox] 40 mg SUBCUT Q24H syringe Glucagon 1 mg IM PRN PRN #0 vial PRN Reason: Hypoglycemia w/o IV access Skin Healing Oint (Aquaphor) [Aquaphor] 1 applic TOP PRN PRN #0 ointment PRN Reason: Dry Skin amLODIPine [Norvasc] 5 mg PO DAILY tablet predniSONE TAB [PredniSONE] 20 mg PO DAILY tablet Continue Metformin HCl [Glucophage] 1,000 mg PEG BID traMADol TAB [Ultram] 50 mg PEG BID PRN PRN Reason: Pain Bisacodyl Tab [Dulcolax Tab] 10 mg PEG DAILY Atorvastatin [Lipitor] 20 mg PEG DAILY Insulin Detemir [Levemir] 20 unit SUBCUT BID #3 injection Magnesium Hydroxide Susp [Milk of Magnesia] 30 ml PEG DAILY PRN PRN Reason: Constipation Albuterol/Ipratropium Neb [Duoneb] 3 ml RESP TX RT TID Amino Acids/Protein Hydrolys [Proteinex-18 Liquid] 30 ml PEG DAILY Acetaminophen Tab [Tylenol Tab] 325 mg PEG Q4H PRN PRN Reason: fever, headache/body aches Sertraline [Zoloft] 25 mg PEG DAILY Potassium Chloride Liquid 20 ml PEG BID Ranitidine Liquid [Zantac Syrup] 150 ml PEG BID Polyethylene Glycol Powder [Miralax] 17 gm PEG DAILY PRN PRN Reason: Constipation Docusate Sodium Liquid [Colace Liquid] 100 mg PEG BID Bisoprolol [Zebeta] 5 mg PEG BID Ibuprofen Liquid [Motrin Liquid] 200 ml PEG TID Amoxicillin/Potassium Clav [Amox-Clav 875-125 mg Tablet] 1 each PEG BID - Follow Up or Referral Follow Up: Amado Barrett MD [Physician] - (6 weeks) - Forms/Instructions Exam - Constitutional Vitals: Period Temp Pulse Resp BP Sys/Birch Pulse Ox Last 24 Hr 97 F-99.1 F 65-88 16-28 104-121/53-68 95-100 Exam: EXAM: CONSTITUTIONAL: non toxic, NAD, shakes head yes or no to basic questions HEENT: NC, AT, OP benign, LUCILLE, EOMI CV: RRR no m/g/r RESP: clear B/L, no w/r/r GI: abd soft, NT, ND, +bowel sounds, PEG tube benign INTEGUMENTARY: no rash EXTREMITIES: Consistent with left heel ulcer NEURO: Consistent with old stroke PSYCH: Unable to obtain, patient nonverbal although he answers basic yes or no questions via nodding yes or no Discharge Results Labs on day of discharge: Labs from last 24 hours 07/27/16 07/27/16 07/27/16 08:42 07:02 05:05 WBC RBC Hgb Hct MCV MCH MCHC RDW Plt Count MPV Neut % (Auto) Lymph % (Auto) [place] % (Auto) Eos % (Auto) Baso % (Auto) Neut # (Auto) Lymph # (Auto) [place] # (Auto) Eos # (Auto) Baso # (Auto) Immature Gran % Nucleated RBC % Immature Gran # Nucleated RBCs # Sodium 150 H Potassium 3.6 Chloride 110 H Carbon Dioxide 33 H Anion Gap 10.6 BUN 16 Creatinine 0.60 L GFR Calculation 124 BUN/Creatinine Ratio 26.00 H Glucose 44 L POC Glucose 138 H 55 L Calculated Osmolality 295.0 Calcium 8.7 07/27/16 07/27/16 07/26/16 05:05 00:38 19:18 WBC 11.4 RBC 3.51 L Hgb 9.0 L Hct 29.0 L MCV 82.6 L MCH 26 L MCHC 31.0 L RDW 15.1 Plt Count 237 MPV 12.6 H Neut % (Auto) 66.9 Lymph % (Auto) 19.3 L [place] % (Auto) 11.7 Eos % (Auto) 1.1 Baso % (Auto) 0.2 Neut # (Auto) 7.7 H Lymph # (Auto) 2.2 [place] # (Auto) 1.3 H Eos # (Auto) 0.1 Baso # (Auto) 0.0 Immature Gran % 0.8 Nucleated RBC % 0.0 Immature Gran # 0.09 Nucleated RBCs # 0.00 Sodium Potassium Chloride Carbon Dioxide Anion Gap BUN Creatinine GFR Calculation BUN/Creatinine Ratio Glucose POC Glucose 82 320 H Calculated Osmolality Calcium 07/26/16 07/26/16 15:17 12:08 WBC RBC Hgb Hct MCV MCH MCHC RDW Plt Count MPV Neut % (Auto) Lymph % (Auto) [place] % (Auto) Eos % (Auto) Baso % (Auto) Neut # (Auto) Lymph # (Auto) [place] # (Auto) Eos # (Auto) Baso # (Auto) Immature Gran % Nucleated RBC % Immature Gran # Nucleated RBCs # Sodium Potassium Chloride Carbon Dioxide Anion Gap BUN Creatinine GFR Calculation BUN/Creatinine Ratio Glucose POC Glucose 353 H 277 H Calculated Osmolality Calcium DS: Provider Date of admission: 07/16/16 11:41 Primary care physician: Noemy Solorio DO Attending physician on admission: Wesley Stone MD Consults: 07/16/16 11:47 Consult to Physician [CONS] Routine Comment: possible PEG tube malfunction Consulting Provider: Aguilar Chilel Consult to Specialist Group: Gastroenterology When should Consulting Provider be notified: Now Person Notified: josh Date Notified: 07/16/16 Time Notified: 14:33 07/16/16 13:01 Consult to Pharmacy [CONS] Routine Reason for Pharmacy Consult: Adjust Meds Renal Funct 07/16/16 13:15 Consult to Dietitian [CONS] Routine Reason for Dietitian: TF-Initiate/Manage Consult Comment: PEG ADMITTED FOR ASPIRATION 07/16/16 13:20 Consult to Pastoral Services [CONS] Routine Comment: Pastoral Screen: Declines Visit Pastoral Screen Source of Request: Other Name of Physician Requesting: NO 07/16/16 14:09 Consult to Wound Care - [place] [CONS] Routine Reason for Wound Care: Wound Care Management Consult Comment: has wound to ajit feet 07/17/16 09:49 Consult to Physician [CONS] Routine Comment: Wound consult Consulting Provider: Amado Barrett Person Notified: MD garcias 07/19/16 08:45 Consult to Physician [CONS] Routine Comment: Consulting Provider: Benjamin Baez 07/20/16 11:10 Consult to Dietitian [CONS] Routine Reason for Dietitian: Dietary Consult 07/21/16 08:43 Consult to Case Mgmt/Social Srvs [CONS] Routine Reason for Case Mgmt/Social Srvs: Discharge Planning Consult Comment: LTAC? 07/23/16 07:15 Consult to Physician [CONS] Routine Comment: hypernatremia Consulting Provider: Tu James Consult to Specialist Group: Nephrology When should Consulting Provider be notified: Nathaniel Person Notified: Sylvia Date Notified: 07/23/16 Time Notified: 15:56 Consult Notification Comment: Discharging clinician: Corey López DO Expected date of discharge: 07/27/16 (to [place])
--- NOTE | 2016-07-27 13:24 | Nephrology Progress Note ---
Nephrology - PN: Subj Interval history: No change in neurologic status. No new symptoms Exam (PN)-Nephrology - Vital Signs Vital signs: Period Temp Pulse Resp BP Sys/Birch Pulse Ox Last 24 Hr 96.0 F-99.1 F 65-98 16-28 104-125/53-68 95-100 Exam: Cardiovascular: Regular rate and rhythm. No murmur rub or gallop Lungs: Clear Extremities: No edema - Lab 07/27/16 05:05 07/27/16 05:05 Most recent lab results ABG pH 7.423 (7.35-7.45) 07/21/16 02:55 ABG pCO2 55.5 MM HG (35-48) H 07/21/16 02:55 ABG pO2 89.5 MM HG (80-95) 07/21/16 02:55 ABG HCO3 35.4 MMOL/L (20-26) H 07/21/16 02:55 ABG O2 Saturation 96.3 % (95-100) 07/21/16 02:55 Calcium 8.7 MG/DL (8.5-10.1) 07/27/16 05:05 Phosphorus 3.5 MG/DL (2.5-4.9) 07/22/16 06:27 Magnesium 2.3 MG/DL (1.8-2.4) 07/24/16 03:13 Assessment and Plan (1) Hypernatremia Status: Acute Assessment and plan: 61-year-old man admitted with: * Cerebrovascular disease. Prior CVA with significant disability. Mental status improving * Hypernatremia. Much improved. Continue water flushes with tube feedings * Pneumonia * Diabetes mellitus * Peripheral vascular disease Current Visit: No (2) Aspiration pneumonia Status: Acute Current Visit: Yes (3) Peripheral vascular disease of lower extremity with ulceration Status: Acute Current Visit: Yes (4) Debility Status: Chronic Current Visit: No (5) Diabetes mellitus Status: Chronic Current Visit: No Qualifiers: Diabetes mellitus type: type 2 Diabetes mellitus complication status: with skin complications Diabetes mellitus fdc insulin use: with director long term care use (6) History of stroke Status: Chronic Current Visit: No Specialty Discharge - Follow Up or Referrals Follow up with: Amado Barrett MD [Physician] - (6 weeks)
[2016-07-27] MEDS: ENOXAPARIN 40 MG/0.4 ML SYRINGE SUBCUT SCH (14:01)
[2016-07-27 17:59] VITALS: BP 118/65
== END 2016-07-27 18:45 | DRG 137 ==
LOC: EDUNIT# → EDBD → N.ED 09:36 → SUATTDRO 11:41 → N.EDINP 11:41 → N.5E 12:57 → N.ICU 07-19 08:56 → N.5E 07-23 14:41
PROVIDERS: ADMIT Internal Medicine Cardiovascular Disease; ATTEND Internal Medicine